=== PATIENT | male | born 1945 | race American Indian/Alaskan Native ===

== ENCOUNTER 2020-09-12 01:12 | Inpatient (IN) | payer MEDICARE ==
[2020-09-12] MEDS ORDERED: ASPIRIN 81 MG TAB CHEW PO ONE (01:50)
[2020-09-12 02:12] LABS: Basophils # (Auto) 0.1 K/mm3 (0.0-0.1); Basophils % (Auto) 0.7 % (0.0-1.8); Eosinophils # (Auto) 0.3 K/mm3 (0.0-0.4); Eosinophils % (Auto) 3.6 % (0.0-4.3); Hematocrit 34.6 % (35.5-45.6); Hemoglobin 11.6 gm/dl (11.8-15.2); Lymphocytes # (Auto) 1.3 K/mm3 (1.2-5.4); Lymphocytes % (Auto) 17.8 % (13.4-35.0); Mean Corpuscular HGB Conc 33 % (32-34); Mean Corpuscular Volume 88 fl (84-94); Monocytes # (Auto) 0.7 K/mm3 (0.0-0.8); Monocytes % (Auto) 9.3 % (0.0-7.3); Platelet Count 258 K/mm3 (140-440); Red Blood Count 3.93 M/mm3 (3.65-5.03); Red Cell Distribution Width 13.9 % (13.2-15.2)
[2020-09-12 02:21] LABS: INR 0.99 (0.87-1.13)
[2020-09-12 02:35] LABS: Alanine Aminotransferase 13 units/L (7-56); Albumin 3.7 g/dL (3.9-5); BUN/Creatinine Ratio 10; Blood Urea Nitrogen 11 mg/dL (9-20); Calcium 8.9 mg/dL (8.4-10.2); Hemolysis Index 6
[2020-09-12] MEDS ORDERED: MAGNESIUM SULFATE 2 GM/50 ML BAG IV ONE (02:42)
--- NOTE | 2020-09-12 02:43 | XRay Report ---
XR chest 1V ap INDICATION / CLINICAL INFORMATION: Dyspnea COMPARISON: None available. FINDINGS: SUPPORT DEVICES: None. HEART / MEDIASTINUM: No significant abnormality. LUNGS / PLEURA: Lungs are clear. Minimal right horizontal fissure thickening. Costophrenic sulci are sharp. No pneumothorax. ADDITIONAL FINDINGS: No significant additional findings. IMPRESSION: 1. No acute findings. Signer Name: Anselmo Chavira MD Signed: 09/12/2020 2:39 AM Workstation Name: [id number]
--- NOTE | 2020-09-12 02:46 | Emergency Department Report ---
ED Shortness of Breath HPI - General Chief Complaint: Dyspnea/Respdistress Stated Complaint: JHON Time Seen by Provider: 09/12/20 01:29 Source: patient, EMS Mode of arrival: Stretcher Limitations: No Limitations - History of Present Illness Initial Comments: 75-year-old male who presents to the emergency department complaint of shortness of breath. Patient does report that he has a history of diabetes and hypertension. He states that for the past few days he has noticed trouble breathing and tightness in his chest. He states he does not consider this to be chest pain. He has had worsening dyspnea on exertion and states he has not been able to walk uphill to go to yarsani. He denies any orthopnea or lower extremity swelling. He states he has had no history of abnormal heart beat and states that he has not seen a upsetter in the clinic. - Related Data Previous Rx's Medication Instructions Recorded Last Taken Type Clindamycin [Clindamycin CAP] 300 mg PO Q6H #40 capsule 06/03/15 Unknown Rx Ibuprofen [Motrin] 600 mg PO Q8H PRN #50 tablet 06/03/15 Unknown Rx Allergies Allergy/AdvReac Type Severity Reaction Status Date / Time No Known Allergies Allergy Verified 09/12/20 06:29 ED Review of Systems ROS: Stated complaint: JHON Other details as noted in HPI Constitutional: denies: chills, fever ENT: denies: dental pain Respiratory: shortness of breath, SOB with exertion. denies: cough, orthopnea Cardiovascular: denies: chest pain Endocrine: no symptoms reported Gastrointestinal: as per HPI. denies: nausea, vomiting Genitourinary: denies: frequency Musculoskeletal: denies: back pain Skin: denies: rash Neurological: headache Psychiatric: denies: anxiety, depression Hematological/Lymphatic: denies: easy bleeding ED Past Medical Hx - Past Medical History Previous Medical History?: Yes Hx Hypertension: Yes Hx Diabetes: Yes Additional medical history: CHRONIC BACK PAIN - Surgical History Past Surgical History?: Yes Additional Surgical History: LEFT FOREARM SURGERY. BACK SURGERY - Social History Smoking Status: Current Some Day Smoker - Medications Home Medications: Home Medications Medication Instructions Recorded Confirmed Last Taken Type Clindamycin [Clindamycin CAP] 300 mg PO Q6H #40 capsule 06/03/15 Unknown Rx Ibuprofen [Motrin] 600 mg PO Q8H PRN #50 tablet 06/03/15 Unknown Rx ED Physical Exam - General Limitations: No Limitations General appearance: alert, in no apparent distress - Head Head exam: Present: atraumatic, normocephalic - Eye Eye exam: Present: normal appearance Pupils: Present: normal accommodation - ENT ENT exam: Present: normal exam - Neck Neck exam: Present: normal inspection - Respiratory Respiratory exam: Present: normal lung sounds bilaterally. Absent: respiratory distress, wheezes, rales, rhonchi - Cardiovascular Cardiovascular Exam: Present: irregular rhythm - GI/Abdominal GI/Abdominal exam: Present: soft. Absent: distended, tenderness - Rectal Rectal exam: Present: deferred - Extremities Exam Extremities exam: Present: normal inspection - Back Exam Back exam: Present: normal inspection - Neurological Exam Neurological exam: Present: alert, oriented X3 - Psychiatric Psychiatric exam: Present: normal affect - Skin Skin exam: Present: warm, dry, intact ED Course Vital Signs 09/12/20 09/12/20 09/12/20 01:41 01:46 01:51 Temperature 98.7 F 98.7 F Pulse Rate 78 74 74 Respiratory 24 24 Rate Blood Pressure 148/85 Blood Pressure 148/84 [Right] O2 Sat by Pulse 94 94 Oximetry 09/12/20 09/12/20 09/12/20 02:00 03:04 04:01 Temperature Pulse Rate 86 80 Respiratory 26 H 30 H Rate Blood Pressure 148/84 152/81 155/59 Blood Pressure [Right] O2 Sat by Pulse 92 94 93 Oximetry 09/12/20 09/12/20 09/12/20 05:01 05:11 05:21 Temperature Pulse Rate 78 78 84 Respiratory 18 17 20 Rate Blood Pressure 160/61 160/61 160/61 Blood Pressure [Right] O2 Sat by Pulse 95 95 96 Oximetry 09/12/20 09/12/20 09/12/20 05:31 05:41 05:54 Temperature Pulse Rate 79 84 62 Respiratory 19 17 15 Rate Blood Pressure 160/61 155/59 Blood Pressure 160/62 [Right] O2 Sat by Pulse 96 95 96 Oximetry - Reevaluation(s) Reevaluation #1: 09/12/20 03:48 Patient reports that his breathing is improved on the supplemental oxygen. He states he feels improved.. ED Medical Decision Making - Lab Data Result diagrams: 09/13/20 05:15 09/13/20 05:15 - EKG Data -: EKG Interpreted by Me No standard instances Rhythm: A. flutter - EKG Data Interpretation: nonspecific ST-T wave arlene - Radiology Data Radiology results: report reviewed - Medical Decision Making 75-year-old male presents emergency department with complaint of shortness of breath as well as tightness in his chest. Symptoms started a few days ago and have since worsened. Patient denies history of previous arrhythmia but initial EKG here does show an atrial flutter. Patient denies any chest pain at this time. Plan to check electrolytes, TSH and patient likely to be admitted for new onset a flutter. ACS is considered as he could have shortness of breath is ACS. Troponins are ordered as well as BNP. Patient does not have history of blood clots in the legs or lungs pulmonary embolism considered but less likely. Critical care attestation.: If time is entered above; I have spent that time in minutes in the direct care of this critically ill patient, excluding procedure time. ED Disposition Clinical Impression: New onset atrial flutter, Dyspnea Disposition: OP ADMIT IP TO THIS HOSP Is pt being admited?: Yes Does the pt Need Aspirin: No Condition: Stable Time of Disposition: 04:10
--- NOTE | 2020-09-12 03:25 | Cat Scan Report ---
CT head/brain wo con INDICATION: headache; will need anticoag for a flutter. TECHNIQUE: Routine CT head. All CT scans at this location are performed using CT dose reduction for A JO ANN by means of automated exposure control. COMPARISON: None. FINDINGS: Intracranial: Harden-white matter differentiation is maintained. No intracranial hemorrhage. No extra a xial collection. No hydrocephalus. No herniation. Periventricular and centrum semiovale white matter hypoattenuation most consistent with sequela of chronic microvascular disease. Sinuses: Paranasal sinuses and mastoid air cells are essentially clear. Orbits: Globes are intact. Calvarium: No acute fracture. IMPRESSION: 1. No acute intracranial abnormality. Signer Name: Anselmo Chavira MD Signed: 09/12/2020 3:21 AM Workstation Name: [id number]
[2020-09-12 03:42] LABS: Bilirubin,Urine NEG (Negative); Blood,Urine NEG (Negative); Color,Urine Yellow (Yellow); Mucus,Urine FEW /HPF; Protein,Urine <15 mg/dL mg/dL (Negative)
[2020-09-12] MEDS ORDERED: ALPRAZolam 0.25 MG TAB PO PRN (06:19)
[2020-09-12] MEDS ORDERED: NITROGLYCERIN 0.4 MG TAB SUBL SL PRN (06:19)
[2020-09-12] MEDS ORDERED: METOCLOPRAMIDE 10 MG/2 ML INJ IV PRN (06:19)
[2020-09-12] MEDS ORDERED: ONDANSETRON 4 MG/2 ML INJ IV PRN (06:19)
[2020-09-12] MEDS ORDERED: ALUM-MAG HYDROXIDE-SIMETHICONE 200-200-20MG/5ML ORAL LIQD 30 ML PO PRN (06:19)
[2020-09-12] MEDS ORDERED: SENNOSIDES 8.6 MG TAB PO PRN (06:19)
[2020-09-12] MEDS ORDERED: ACETAMINOPHEN 325 MG TAB PO PRN (06:19)
[2020-09-12] MEDS ORDERED: hydrALAZINE 20 MG/1 ML INJ IV PRN (06:24)
[2020-09-12] MEDS ORDERED: traMADol 50 MG TAB PO PRN (06:29)
[2020-09-12] MEDS ORDERED: traZODone 50 MG TAB PO PRN (06:29)
--- NOTE | 2020-09-12 06:34 | History and Physical Report ---
History of Present Illness Date of admission: 09/12/20 05:05 History of present illness: 75-year-old male who presents to the emergency department complaint of shortness of breath. Patient does report that he has a history of diabetes and hypertension. He states that for the past few days he has noticed trouble dorothy athing and tightness in his chest. He states he does not consider this to be chest pain. He has had worsening dyspnea on exertion and states he has not been able to walk uphill to go to voodoo. He denies any orthopnea or lower extremity swelling. He states he has had no history of abnormal heart beat and states that he has not seen a item repair manager in the clinic. ED work-up shows WBC 7.2 hemoglobin 11.6 platelets 258, sodium 140, potassium 3.9, creatinine 1.1, serum glucose 187, magnesium 1.4, BNP 920.9, and troponin negative. CT of the head done showed no acute intracranial abnormality checks x-ray no acute finding. Patient seen at bedside sleeping but easy to arouse patient on oxygen by nasal cannula patient originally came to the ED with shortness of breath. Patient has history of high blood pressure and diabetes I reviewed the lab medical record and vital signs. Patient has low magnesium will replace. Past History Past Medical History: atrial fib, diabetes, hypertension Past Surgical History: No surgical history Social history: lives with family Family history: hypertension Medications and Allergies Allergies Allergy/AdvReac Type Severity Reaction Status Date / Time No Known Allergies Allergy Verified 09/12/20 06:29 Home Medications Medication Instructions Recorded Confirmed Last Taken Type Clindamycin [Clindamycin CAP] 300 mg PO Q6H #40 capsule 06/03/15 Unknown Rx Ibuprofen [Motrin] 600 mg PO Q8H PRN #50 tablet 06/03/15 Unknown Rx Active Meds: Active Medications Acetaminophen (Acetaminophen 325 Mg Tab) 650 mg PO Q4H PRN PRN Reason: Pain MILD(1-3)/Fever >100.5/MURRAY Al Hydrox/Mg Hydrox/Simethicone (Alum-Mag Hydroxide-Simethicone [id number]/5ml Oral Liqd 30 Ml) 30 ml PO Q4H PRN PRN Reason: Indigestion Alprazolam (Alprazolam 0.25 Mg Tab) 0.125 mg PO Q8H PRN PRN Reason: Agitation Aspirin (Aspirin Ec 81 Mg Tab) 81 mg PO QDAY [facility] Famotidine (Famotidine 20 Mg/2 Ml Inj) 20 mg IV BID [facility] Hydralazine HCl (Hydralazine 20 Mg/1 Ml Inj) 5 mg IV Q4HR PRN PRN Reason: Hypertension Metoclopramide HCl (Metoclopramide 10 Mg/2 Ml Inj) 10 mg IV Q6H PRN PRN Reason: Nausea And Vomiting Metoprolol Tartrate (Metoprolol Tartrate 50 Mg Tab) 50 mg PO BID [facility] Nitroglycerin (Nitroglycerin 0.4 Mg Tab Subl) 0.4 mg SL .Q5MIN PRN PRN Reason: Chest Pain Ondansetron HCl (Ondansetron 4 Mg/2 Ml Inj) 4 mg IV Q8H PRN PRN Reason: Nausea And Vomiting Senna (Sennosides 8.6 Mg Tab) 8.6 mg PO Q12HR PRN PRN Reason: Constipation Sodium Chloride (Sodium Chloride 0.9% 10 Ml Flush Syringe) 10 ml IV BID [facility] Sodium Chloride (Sodium Chloride 0.9% 10 Ml Flush Syringe) 10 ml IV PRN PRN PRN Reason: LINE FLUSH Review of Systems Ears, nose, mouth and throat: no epistaxis, no bleeding gums Cardiovascular: shortness of breath, dyspnea on exertion Respiratory: shortness of breath Gastrointestinal: no melena Rectal: no itching, no hemorrhoids Musculoskeletal: no neck stiffness Integumentary: no rash, no pruritis Neurological: no head injury Psychiatric: no suicidal ideation, no disorientation Hematologic/Lymphatic: no easy bruising, no easy bleeding Allergic/Immunologic: no urticaria Exam - Constitutional Vitals: Temp Pulse Resp BP Pulse Ox 98.7 F 62 15 160/62 96 09/12/20 01:51 09/12/20 05:54 09/12/20 05:54 09/12/20 05:54 09/12/20 05:54 General appearance: Present: mild distress, obese - EENT Eyes: Present: PERRL ENT: hearing intact, clear oral mucosa - Neck Neck: Present: supple, normal ROM - Respiratory Respiratory effort: normal Respiratory: bilateral: CTA - Cardiovascular Heart rate: 62 Rhythm: irregularly irregular (new onset A-fib) Heart Sounds: Present: S1 & S2. Absent: rub, click - Extremities Extremities: pulses symmetrical, No edema Peripheral Pulses: within normal limits - Abdominal General gastrointestinal: Present: soft, non-tender, non-distended, normal bowel sounds Male genitourinary: Present: normal - Integumentary Integumentary: Present: clear, warm, dry - Musculoskeletal Musculoskeletal: gait normal, strength equal bilaterally - Psychiatric Psychiatric: appropriate mood/affect, intact judgment & insight, cooperative - Neurologic Neurologic: CNII-XII intact, moves all extremities - Allied Health Allied health notes reviewed: nursing HEART Score - HEART Score Troponin: Troponin T < 0.010 ng/mL (0.00-0.029) 09/12/20 01:54 Results - Labs CBC & Chem 7: 09/12/20 01:54 09/12/20 01:54 Labs: Abnormal lab results 09/12/20 09/12/20 09/12/20 Range/Units 01:54 01:54 03:48 Hgb 11.6 L (11.8-15.2) gm/dl Hct 34.6 L (35.5-45.6) % [place] % (Auto) 9.3 H (0.0-7.3) % Glucose 187 H (75-100) mg/dL Magnesium 1.40 L (1.7-2.3) mg/dL NT-Pro-B Natriuret Pep 920.9 H (0-900) pg/mL Albumin 3.7 L (3.9-5) g/dL Assessment and Plan - Patient Problems (1) New onset atrial flutter Current Visit: Yes Status: Acute Plan to address problem: Patient came with shortness of breath New onset A- Flutter Patient started on antiplatelet and beta-ignacia [employer] consulted will follow up with plan of care Echocardiogram ordered. (2) Dyspnea Current Visit: Yes Status: Acute Plan to address problem: Oxygen per nasal cannula Monitor ABG and as needed bronchodilators (3) Hypertension Current Visit: Yes Status: Acute Plan to address problem: Monitor blood pressure Resume home antihypertensive As needed hydralazine (4) Diabetes Current Visit: Yes Status: Acute Plan to address problem: Monitor blood sugar with sliding scale protocol Check hemoglobin A1c (5) Acute CHF (congestive heart failure) Current Visit: Yes Status: Acute Plan to address problem: BNP elevated on blood work Patient came with shortness of breath Patient a flutter on the monitor Echo and cardiac consult. Start cardioprotective measures antiplatelet, statin, BB, and oxygen supplement as needed. (6) Hypomagnesemia Current Visit: Yes Status: Acute Plan to address problem: Replace magnesium Check magnesium level in the morning (7) DVT prophylaxis Current Visit: Yes Status: Acute Plan to address problem: Subcutaneous Lovenox (8) Full code status Current Visit: Yes Status: Acute Plan to address problem: Patient is full code
[2020-09-12] MEDS ORDERED: MAGNESIUM SULFATE 4 GM/100 ML BAG IV ONE (06:36)
[2020-09-12] MEDS: INSULIN LISPRO 100 UNIT/ML SUB-Q SCH ×4 (08:20→22:21)
--- NOTE | 2020-09-12 08:26 | Consultation ---
History of Present Illness Consult date: 09/12/20 Requesting physician: ALBERTO BERTRAND Consult reason: atrial fibrillation History of present illness: Pt is a 75-year-old AA male with a hx of HTN and DM who presented with complaints of SOB/HARPER for the past few days. He reports that he would not be able to make it more than residential down the hallway currently without sx. He does not endorse orthopnea but does sleep propped up with 2-3 pillows at home. Pt denies chest pain, palpitations, or any additional cardiac complaints. BNP mildly elevated. No acute findings on CXR. ECG upon admission reveals atrial flutter with 4:1 conduction. Tele reviewed - AFlutter 70-80s. Pt denies a hx of AF or other arrhythmias. He is previously unknown to our practice. No prior cardiac workup available for review. Past History Past Medical History: diabetes, hypertension Past Surgical History: denies: valve replacement, CABG, PTCA Social history: lives with family, smoking (cigars), alcohol abuse, other (+cocaine) Family history: hypertension Medications and Allergies Allergies Allergy/AdvReac Type Severity Reaction Status Date / Time No Known Allergies Allergy Verified 09/12/20 06:29 Home Medications Medication Instructions Recorded Confirmed Last Taken Type Clindamycin [Clindamycin CAP] 300 mg PO Q6H #40 capsule 06/03/15 Unknown Rx Ibuprofen [Motrin] 600 mg PO Q8H PRN #50 tablet 06/03/15 Unknown Rx Active Meds: Active Medications Acetaminophen (Acetaminophen 325 Mg Tab) 650 mg PO Q4H PRN PRN Reason: Pain MILD(1-3)/Fever >100.5/MURRAY Al Hydrox/Mg Hydrox/Simethicone (Alum-Mag Hydroxide-Simethicone [id number]/5ml Oral Liqd 30 Ml) 30 ml PO Q4H PRN PRN Reason: Indigestion Alprazolam (Alprazolam 0.25 Mg Tab) 0.125 mg PO Q8H PRN PRN Reason: Agitation Amlodipine Besylate (Amlodipine 10 Mg Tab) 10 mg PO QDAY [facility] Aspirin (Aspirin Ec 81 Mg Tab) 81 mg PO QDAY [facility] Atorvastatin Calcium (Atorvastatin 40 Mg Tab) 40 mg PO QHS [facility] Carvedilol (Carvedilol 3.125 Mg Tab) 3.125 mg PO BID [facility] Enoxaparin Sodium (Enoxaparin 40 Mg/0.4 Ml Inj) 40 mg SUB-Q QDAY [facility]; Protocol Famotidine (Famotidine 20 Mg/2 Ml Inj) 20 mg IV BID [facility] Hydralazine HCl (Hydralazine 20 Mg/1 Ml Inj) 5 mg IV Q4HR PRN PRN Reason: Hypertension Magnesium Sulfate (Magnesium Sulfate 4gm/100ml) 4 gm in 100 mls @ 25 mls/hr IV ONCE ONE Stop: 09/12/20 10:35 Insulin Human Lispro (Insulin Lispro 100 Unit/Ml) 0 unit SUB-Q ACHS [facility]; Protocol Last Admin: 09/12/20 08:20 Dose: Not Given Documented by: Metoclopramide HCl (Metoclopramide 10 Mg/2 Ml Inj) 10 mg IV Q6H PRN PRN Reason: Nausea And Vomiting Nitroglycerin (Nitroglycerin 0.4 Mg Tab Subl) 0.4 mg SL .Q5MIN PRN PRN Reason: Chest Pain Ondansetron HCl (Ondansetron 4 Mg/2 Ml Inj) 4 mg IV Q8H PRN PRN Reason: Nausea And Vomiting Senna (Sennosides 8.6 Mg Tab) 8.6 mg PO Q12HR PRN PRN Reason: Constipation Sodium Chloride (Sodium Chloride 0.9% 10 Ml Flush Syringe) 10 ml IV BID [facility] Sodium Chloride (Sodium Chloride 0.9% 10 Ml Flush Syringe) 10 ml IV PRN PRN PRN Reason: LINE FLUSH Tramadol HCl (Tramadol 50 Mg Tab) 50 mg PO Q6H PRN PRN Reason: Pain, Moderate (4-6) Trazodone HCl (Trazodone 50 Mg Tab) 50 mg PO QHS PRN PRN Reason: Insomnia Review of Systems Constitutional: no fever, no chills Ears, nose, mouth and throat: no nasal congestion, no sore throat Cardiovascular: shortness of breath, dyspnea on exertion, no chest pain, no orthopnea, no palpitations, no edema, no syncope, no lightheadedness, no paroxysmal nocturnal dyspnea, no claudication Respiratory: shortness of breath, dyspnea on exertion, no cough Gastrointestinal: no abdominal pain, no nausea, no vomiting Genitourinary Male: no dysuria, no flank pain Musculoskeletal: no neck stiffness, no neck pain Integumentary: no rash, no wounds Neurological: no head injury, no paralysis, no numbness, no tingling, no seizures, no syncope, no vertigo, no headaches Endocrine: no cold intolerance, no heat intolerance Hematologic/Lymphatic: no easy bruising, no easy bleeding Allergic/Immunologic: no anaphylaxis Physical Examination Last Vital Signs Temp 98.5 F 09/12/20 07:36 Pulse 75 09/12/20 07:36 Resp 18 09/12/20 07:36 BP 164/71 09/12/20 07:36 Pulse Ox 92 09/12/20 07:36 General appearance: no acute distress HEENT: Positive: PERRL, Normocephaly, Mucus Membranes Moist Neck: Positive: neck supple, trachea midline. Negative: JVD/HJR Cardiac: Positive: Irregularly Regular, S1/S2. Negative: Audible Murmur Lungs: Positive: Decreased Breath Sounds (bases) Neuro: Positive: Grossly Intact Abdomen: Positive: Soft. Negative: Tender Skin: Negative: Rash Musculoskeletal: No Pain Extremities: Present: lower extr. pulses. Absent: edema Results 09/12/20 01:54 09/12/20 01:54 Cardiac Enzymes 09/12/20 Range/Units 01:54 AST 11 (5-40) units/L Coagulation 09/12/20 Range/Units 01:54 PT 13.6 (12.2-14.9) Sec. INR 0.99 (0.87-1.13) CBC 09/12/20 Range/Units 01:54 WBC 7.2 (4.5-11.0) K/mm3 RBC 3.93 (3.65-5.03) M/mm3 Hgb 11.6 L (11.8-15.2) gm/dl Hct 34.6 L (35.5-45.6) % Plt Count 258 (140-440) K/mm3 Lymph # (Auto) 1.3 (1.2-5.4) K/mm3 [place] # (Auto) 0.7 (0.0-0.8) K/mm3 Eos # (Auto) 0.3 (0.0-0.4) K/mm3 Baso # (Auto) 0.1 (0.0-0.1) K/mm3 Comprehensive Metabolic Panel 09/12/20 Range/Units 01:54 Sodium 140 (137-145) mmol/L Potassium 3.9 (3.6-5.0) mmol/L Chloride 106.0 (98-107) mmol/L Carbon Dioxide 26 (22-30) mmol/L BUN 11 (9-20) mg/dL Creatinine 1.1 (0.8-1.3) mg/dL Glucose 187 H (75-100) mg/dL Calcium 8.9 (8.4-10.2) mg/dL AST 11 (5-40) units/L ALT 13 (7-56) units/L Alkaline Phosphatase 45 (35-129) units/L Total Protein 6.7 (6.3-8.2) g/dL Albumin 3.7 L (3.9-5) g/dL - Imaging and Cardiology Echo: pending EKG: report reviewed, image reviewed - EKG Interpretation EKG: no acute changes EKG interpretations - Telemetry EKG Rhythm: Atrial Flutter - EKG Supraventricular dysrhythmia: atrial flutter Assessment and Plan Echo pending. Mg repletion underway per Primary. F/u BMP & Mg. Will start Eliquis for new onset atrial flutter. Discontinue ASA. Rate is currently well-controlled. May increase Coreg to 6.25mg BID as BP permits. Will also start IV Lasix 40mg daily for now. Pt seen in conjunction with Dr. Cardenas, who agrees with the assessment and plan of care. - Patient Problems (1) Acute respiratory failure Current Visit: Yes Status: Acute (2) Acute heart failure Current Visit: Yes Status: Suspected (3) New onset atrial flutter Current Visit: Yes Status: Acute (4) Hypomagnesemia Current Visit: Yes Status: Acute (5) Hypertension Current Visit: Yes Status: Chronic Qualifiers: Hypertension type: primary hypertension Qualified Code(s): I10 - Essential (primary) hypertension (6) Diabetes Current Visit: Yes Status: Chronic (7) Tobacco abuse Current Visit: Yes Status: Chronic (8) ETOH abuse Current Visit: Yes Status: Chronic (9) Cocaine abuse Current Visit: No Status: Chronic
[2020-09-12] MEDS: FAMOTIDINE 20 MG/2 ML INJ IV SCH ×2 (09:28→22:20)
[2020-09-12] MEDS ORDERED: ENOXAPARIN 40 MG/0.4 ML INJ SUB-Q SCH (10:00)
[2020-09-12] MEDS ORDERED: carvediloL 3.125 MG TAB PO SCH (10:00)
[2020-09-12] MEDS ORDERED: METOPROLOL TARTRATE 50 MG TAB PO SCH (10:00)
[2020-09-12] MEDS ORDERED: amLODIPine 10 MG TAB PO SCH (10:00)
[2020-09-12] MEDS: APIXABAN 5 MG TAB PO SCH ×2 (11:27→22:21)
[2020-09-12] MEDS: FUROSEMIDE 40 MG/4 ML INJ IV SCH (11:28)
--- NOTE | 2020-09-12 12:15 | Event Note ---
Date: 09/12/20 Brief progress note Patient seen and examined History obtained This is the second IMS visit of the day He is alert and oriented and not in any distress Offers no specific complaints and denies any shortness of breath or palpitations or chest pain Lab results reviewed Cardiology note reviewed Echo pending Heart rate is controlled New onset atrial flutter Work-up in progress
[2020-09-12] MEDS: carvediloL 3.125 MG TAB PO SCH (22:20)
[2020-09-13 06:03] LABS: Basophils # (Auto) 0.1 K/mm3 (0.0-0.1); Basophils % (Auto) 0.9 % (0.0-1.8); Eosinophils # (Auto) 0.2 K/mm3 (0.0-0.4); Hematocrit 34.4 % (35.5-45.6); Hemoglobin 11.2 gm/dl (11.8-15.2); Lymphocytes # (Auto) 1.8 K/mm3 (1.2-5.4); Lymphocytes % (Auto) 30.2 % (13.4-35.0); Mean Corpuscular HGB Conc 33 % (32-34); Mean Corpuscular Volume 89 fl (84-94); Monocytes # (Auto) 0.8 K/mm3 (0.0-0.8); Monocytes % (Auto) 13.5 % (0.0-7.3); Platelet Count 232 K/mm3 (140-440); Red Blood Count 3.88 M/mm3 (3.65-5.03); Red Cell Distribution Width 14.4 % (13.2-15.2)
[2020-09-13 06:58] LABS: Alanine Aminotransferase 10 units/L (7-56); Albumin 3.5 g/dL (3.9-5); BUN/Creatinine Ratio 9; Blood Urea Nitrogen 9 mg/dL (9-20); Calcium 9.1 mg/dL (8.4-10.2); Hemolysis Index 5
[2020-09-13] MEDS: INSULIN LISPRO 100 UNIT/ML SUB-Q SCH ×4 (08:30→21:46)
[2020-09-13] MEDS ORDERED: ASPIRIN EC 81 MG TAB PO SCH (10:00)
[2020-09-13] MEDS ORDERED: amLODIPine 10 MG TAB PO SCH (10:00)
--- NOTE | 2020-09-13 10:07 | Progress Note ---
Assessment and Plan Assessment and plan: Pt is a 75-year-old AA male with a hx of HTN and DM who presented with complaints of SOB/HARPER for the past few days. He reports that he would not be able to make it more than custodial down the hallway currently without sx. He does not endorse orthopnea but does sleep propped up with 2-3 pillows at home. Pt denied chest pain, palpitations, or any additional cardiac complaints. BNP mildly elevated. No acute findings on CXR. ECG upon admission reveals atrial flutter with 4:1 conduction. Tele reviewed - AFlutter 70-80s. Pt denies a hx of AF or other arrhythmias. No prior cardiac workup available for review. Acute hypoxic respiratory failure Acute heart failure. Echocardiogram pending. New onset atrial flutter Hypomagnesemia Hypertension Diabetes mellitus type 2 Tobacco abuse EtOH abuse Cocaine abuse 09/13/2020. Cardiology started Eliquis for new onset atrial flutter. Aspirin discontinued. Continue Coreg per cardiology recommendations. IV Lasix for diuresis. Follow-up echocardiogram. History Interval history: No new issues overnight Hospitalist Physical - Constitutional Vitals: Temp Pulse Resp BP Pulse Ox 97.3 F L 67 18 151/82 95 09/13/20 08:03 09/13/20 08:03 09/13/20 08:03 09/13/20 08:03 09/13/20 09:09 General appearance: Present: no acute distress - EENT Eyes: Present: PERRL, EOM intact ENT: hearing intact, clear oral mucosa, dentition normal - Neck Neck: Present: supple, normal ROM - Respiratory Respiratory effort: normal Respiratory: bilateral: CTA - Cardiovascular Rhythm: regular Heart Sounds: Present: S1 & S2. Absent: gallop, rub - Extremities Extremities: no ischemia, No edema, Full ROM - Abdominal General gastrointestinal: soft, non-tender, non-distended, normal bowel sounds - Integumentary Integumentary: Present: clear, warm, dry - Neurologic Neurologic: CNII-XII intact, moves all extremities HEART Score - HEART Score Troponin: Troponin T < 0.010 ng/mL (0.00-0.029) 09/12/20 11:00 Results - Labs CBC & Chem 7: 09/13/20 05:15 09/13/20 05:15 Labs: Laboratory Last Values WBC 5.9 K/mm3 (4.5-11.0) 09/13/20 05:15 RBC 3.88 M/mm3 (3.65-5.03) 09/13/20 05:15 Hgb 11.2 gm/dl (11.8-15.2) L 09/13/20 05:15 Hct 34.4 % (35.5-45.6) L 09/13/20 05:15 MCV 89 fl (84-94) 09/13/20 05:15 MCH 29 pg (28-32) 09/13/20 05:15 MCHC 33 % (32-34) 09/13/20 05:15 RDW 14.4 % (13.2-15.2) 09/13/20 05:15 Plt Count 232 K/mm3 (140-440) 09/13/20 05:15 Lymph % (Auto) 30.2 % (13.4-35.0) 09/13/20 05:15 [place] % (Auto) 13.5 % (0.0-7.3) H 09/13/20 05:15 Eos % (Auto) 4.0 % (0.0-4.3) 09/13/20 05:15 Baso % (Auto) 0.9 % (0.0-1.8) 09/13/20 05:15 Lymph # (Auto) 1.8 K/mm3 (1.2-5.4) 09/13/20 05:15 [place] # (Auto) 0.8 K/mm3 (0.0-0.8) 09/13/20 05:15 Eos # (Auto) 0.2 K/mm3 (0.0-0.4) 09/13/20 05:15 Baso # (Auto) 0.1 K/mm3 (0.0-0.1) 09/13/20 05:15 Seg Neutrophils % 51.4 % (40.0-70.0) 09/13/20 05:15 Seg Neutrophils # 3.0 K/mm3 (1.8-7.7) 09/13/20 05:15 PT 13.6 Sec. (12.2-14.9) 09/12/20 01:54 INR 0.99 (0.87-1.13) 09/12/20 01:54 Sodium 141 mmol/L (137-145) 09/13/20 05:15 Potassium 3.9 mmol/L (3.6-5.0) 09/13/20 05:15 Chloride 103.7 mmol/L (98-107) 09/13/20 05:15 Carbon Dioxide 28 mmol/L (22-30) 09/13/20 05:15 Anion Gap 13 mmol/L 09/13/20 05:15 BUN 9 mg/dL (9-20) 09/13/20 05:15 Creatinine 1.0 mg/dL (0.8-1.3) 09/13/20 05:15 Estimated GFR > 60 ml/min 09/13/20 05:15 BUN/Creatinine Ratio 9 % 09/13/20 05:15 Glucose 137 mg/dL (75-100) H 09/13/20 05:15 POC Glucose 154 mg/dL (70-105) H 09/13/20 08:02 Calcium 9.1 mg/dL (8.4-10.2) 09/13/20 05:15 Magnesium 1.70 mg/dL (1.7-2.3) 09/13/20 05:15 Total Bilirubin 0.60 mg/dL (0.1-1.2) 09/13/20 05:15 AST 10 units/L (5-40) 09/13/20 05:15 ALT 10 units/L (7-56) 09/13/20 05:15 Alkaline Phosphatase 43 units/L (35-129) 09/13/20 05:15 Troponin T < 0.010 ng/mL (0.00-0.029) 09/12/20 11:00 NT-Pro-B Natriuret Pep 920.9 pg/mL (0-900) H 09/12/20 03:48 Total Protein 6.6 g/dL (6.3-8.2) 09/13/20 05:15 Albumin 3.5 g/dL (3.9-5) L 09/13/20 05:15 Albumin/Globulin Ratio 1.1 % 09/13/20 05:15 TSH 1.510 mlU/mL (0.270-4.200) 09/12/20 03:00 Urine Color Yellow (Yellow) 09/12/20 03:28 Urine Turbidity Clear (Clear) 09/12/20 03:28 Urine pH 6.0 (5.0-7.0) 09/12/20 03:28 Ur Specific [place] 1.013 (1.003-1.030) 09/12/20 03:28 Urine Protein <15 mg/dl mg/dL (Negative) 09/12/20 03:28 Urine Glucose (UA) >=500 mg/dL (Negative) 09/12/20 03:28 Urine Ketones Neg mg/dL (Negative) 09/12/20 03:28 Urine Blood Neg (Negative) 09/12/20 03:28 Urine Nitrite Neg (Negative) 09/12/20 03:28 Urine Bilirubin Neg (Negative) 09/12/20 03:28 Urine Urobilinogen 2.0 mg/dL (<2.0) 09/12/20 03:28 Ur Leukocyte Esterase Neg (Negative) 09/12/20 03:28 Urine WBC (Auto) 1.0 /HPF (0.0-6.0) 09/12/20 03:28 Urine RBC (Auto) 1.0 /HPF (0.0-6.0) 09/12/20 03:28 U Epithel Cells (Auto) 1.0 /HPF (0-13.0) 09/12/20 03:28 Urine Mucus Few /HPF 09/12/20 03:28 Armando/IV: Voiding Method Toilet Active Medications - Current Medications Current Medications: Generic Name Dose Route Start Last Admin Trade Name Freq PRN Reason Stop Dose Admin Acetaminophen 650 mg 09/12/20 06:19 Acetaminophen 325 Mg Tab PO Q4H PRN Pain MILD(1-3)/Fever >100.5/MURRAY Al Hydrox/Mg Hydrox/Simethicone 30 ml 09/12/20 06:19 Alum-Mag Hydroxide-Simethicone [id number]/5ml Oral Liqd 30 Ml PO Q4H PRN Indigestion Alprazolam 0.125 mg 09/12/20 06:19 Alprazolam 0.25 Mg Tab PO Q8H PRN Agitation Amlodipine Besylate 5 mg 09/13/20 10:00 Amlodipine 10 Mg Tab PO QDAY BRONSON Apixaban 5 mg 09/12/20 11:00 09/12/20 22:21 Apixaban 5 Mg Tab PO 5 mg Q12HR BRONSON Administration Protocol Atorvastatin Calcium 40 mg 09/12/20 22:00 09/12/20 22:21 Atorvastatin 40 Mg Tab PO 40 mg QHS BRONSON Administration Carvedilol 6.25 mg 09/12/20 10:31 09/12/20 22:20 Carvedilol 3.125 Mg Tab PO 6.25 mg BID BRONSON Administration Famotidine 20 mg 09/13/20 10:00 Famotidine 20 Mg Tab PO BID BRONSON Furosemide 40 mg 09/12/20 11:00 09/12/20 11:28 Furosemide 40 Mg/4 Ml Inj IV 40 mg QDAY BRONSON Administration Hydralazine HCl 5 mg 09/12/20 06:24 Hydralazine 20 Mg/1 Ml Inj IV Q4HR PRN SBP >/=170; DBP >/=100 Insulin Human Lispro 0 unit 09/12/20 07:30 09/13/20 08:30 Insulin Lispro 100 Unit/Ml SUB-Q 1 unit ACHS BRONSON Administration Protocol Metoclopramide HCl 10 mg 09/12/20 06:19 Metoclopramide 10 Mg/2 Ml Inj IV Q6H PRN Nausea And Vomiting Nitroglycerin 0.4 mg 09/12/20 06:19 Nitroglycerin 0.4 Mg Tab Subl SL .Q5MIN PRN Chest Pain Ondansetron HCl 4 mg 09/12/20 06:19 Ondansetron 4 Mg/2 Ml Inj IV Q8H PRN Nausea And Vomiting Senna 8.6 mg 09/12/20 06:19 Sennosides 8.6 Mg Tab PO Q12HR PRN Constipation Sodium Chloride 10 ml 09/12/20 10:00 09/12/20 22:21 Sodium Chloride 0.9% 10 Ml Flush Syringe IV 10 ml BID BRONSON Administration Sodium Chloride 10 ml 09/12/20 06:19 Sodium Chloride 0.9% 10 Ml Flush Syringe IV PRN PRN LINE FLUSH Tramadol HCl 50 mg 09/12/20 06:29 Tramadol 50 Mg Tab PO Q6H PRN Pain, Moderate (4-6) Trazodone HCl 50 mg 09/12/20 06:29 Trazodone 50 Mg Tab PO QHS PRN Insomnia
[2020-09-13] MEDS: FAMOTIDINE 20 MG TAB PO SCH ×2 (10:20→21:45)
[2020-09-13] MEDS: APIXABAN 5 MG TAB PO SCH ×2 (10:20→21:46)
[2020-09-13] MEDS: FUROSEMIDE 40 MG/4 ML INJ IV SCH (10:20)
[2020-09-13] MEDS: carvediloL 3.125 MG TAB PO SCH ×2 (10:21→21:46)
--- NOTE | 2020-09-13 11:07 | Progress Note ---
Assessment and Plan Atrial flutter, new onset with Acute HFpEF * Anticoagulated on Eliquis. Rate currently well controlled on Coreg * Echocardiogram reviewed (09/12/2020): LVEF is 60 to 65%. LV is normal size. LV SF is normal. Borderline LVH. RV is mildly dilated. RV SF is normal. RA moderately dilated. Moderate pulmonary hypertension RVSP is 54 mmHg. * Hypomagnesia is resolved * Optimize volume control: Continue Lasix 40mg IV Daily Moderate Pulmonary HTN with dilated Right ventricular Cardiomyopathy * Opimize Antihypertensive regimen: Discontinue amlodipine, Initiate Lisinopril 10mg Daily Tobacco Use, ETOH, Cocaine use * Cessation encouraged Will follow Pt seen in conjunction with Dr. Foreman, who agrees with the assessment and plan of care. - Patient Problems (1) Acute respiratory failure Current Visit: Yes Status: Acute (2) Acute heart failure Current Visit: Yes Status: Suspected (3) New onset atrial flutter Current Visit: Yes Status: Acute (4) Hypomagnesemia Current Visit: Yes Status: Acute (5) Hypertension Current Visit: Yes Status: Chronic Qualifiers: Hypertension type: primary hypertension Qualified Code(s): I10 - Essential (primary) hypertension (6) Diabetes Current Visit: Yes Status: Chronic (7) Tobacco abuse Current Visit: Yes Status: Chronic (8) ETOH abuse Current Visit: Yes Status: Chronic (9) Cocaine abuse Current Visit: No Status: Chronic (10) Pulmonary HTN Current Visit: No Status: Acute Subjective Date of service: 09/13/20 Principal diagnosis: New Onset A fib/flutter Interval history: Patient resting comfortably in bed. No shortness of breath or chest pain overnight Telemetry reviewed: Atrial flutter 70s. No events Objective Last Vital Signs Temp 97.3 F L 09/13/20 08:03 Pulse 70 09/13/20 10:21 Resp 18 09/13/20 08:03 BP 150/73 09/13/20 10:21 Pulse Ox 95 09/13/20 09:09 - Physical Examination General: No Apparent Distress HEENT: Positive: PERRL, Normocephaly, Mucus Membranes Moist Neck: Positive: neck supple, trachea midline. Negative: JVD/HJR Cardiac: Positive: Reg Rate and Rhythm, S1/S2 Lungs: Positive: clear to auscultation, Normal Breath Sounds Neuro: Positive: Grossly Intact Abdomen: Positive: Soft. Negative: Tender Skin: Negative: Rash Musculoskeletal: No Pain Extremities: Present: upper extr. pulses, lower extr. pulses. Absent: edema - Labs and Meds Cardiac Enzymes 09/13/20 Range/Units 05:15 AST 10 (5-40) units/L CBC 09/13/20 Range/Units 05:15 WBC 5.9 (4.5-11.0) K/mm3 RBC 3.88 (3.65-5.03) M/mm3 Hgb 11.2 L (11.8-15.2) gm/dl Hct 34.4 L (35.5-45.6) % Plt Count 232 (140-440) K/mm3 Lymph # (Auto) 1.8 (1.2-5.4) K/mm3 [place] # (Auto) 0.8 (0.0-0.8) K/mm3 Eos # (Auto) 0.2 (0.0-0.4) K/mm3 Baso # (Auto) 0.1 (0.0-0.1) K/mm3 Comprehensive Metabolic Panel 09/12/20 09/13/20 Range/Units 11:00 05:15 Sodium 141 (137-145) mmol/L Potassium 4.0 3.9 (3.6-5.0) mmol/L Chloride 103.7 (98-107) mmol/L Carbon Dioxide 28 (22-30) mmol/L BUN 9 (9-20) mg/dL Creatinine 1.0 (0.8-1.3) mg/dL Glucose 137 H (75-100) mg/dL Calcium 9.1 (8.4-10.2) mg/dL AST 10 (5-40) units/L ALT 10 (7-56) units/L Alkaline Phosphatase 43 (35-129) units/L Total Protein 6.6 (6.3-8.2) g/dL Albumin 3.5 L (3.9-5) g/dL - Imaging and Cardiology EKG: report reviewed, image reviewed Echo: report reviewed (Echocardiogram reviewed (09/12/2020): LVEF is 60 to 65%. LV is normal size. LV SF is normal. Borderline LVH. RV is mildly dilated. RV SF is normal. RA moderately dilated. Moderate pulmonary hypertension RVSP is 54 mmHg.) - Telemetry EKG Rhythm: Sinus Rhythm
[2020-09-13] MEDS: LISINOPRIL 10 MG TAB PO SCH (12:24)
[2020-09-14 08:48] VITALS: BP 160/86
--- NOTE | 2020-09-14 09:20 | Progress Note ---
Assessment and Plan Assessment and plan: Pt is a 75-year-old AA male with a hx of HTN and DM who presented with complaints of SOB/HARPER for the past few days. He reports that he would not be able to make it more than fpc down the hallway currently without sx. He does not endorse orthopnea but does sleep propped up with 2-3 pillows at home. Pt denied chest pain, palpitations, or any additional cardiac complaints. BNP mildly elevated. No acute findings on CXR. ECG upon admission reveals atrial flutter with 4:1 conduction. Tele reviewed - AFlutter 70-80s. Pt denies a hx of AF or other arrhythmias. No prior cardiac workup available for review. Acute hypoxic respiratory failure Acute heart failure. Echocardiogram pending. New onset atrial flutter Hypomagnesemia Hypertension Diabetes mellitus type 2 Tobacco abuse EtOH abuse Cocaine abuse 09/13/2020. Cardiology started Eliquis for new onset atrial flutter. Aspirin discontinued. Continue Coreg per cardiology recommendations. IV Lasix for diuresis. Follow-up echocardiogram. 09/14/20. Cont. Eliquis for anticoagulation and Coreg for rate control. IV Lasix for diuresis. Follow-up echocardiogram. Cardiology following History Interval history: No new issues overnight Hospitalist Physical - Constitutional Vitals: Temp Pulse Resp BP Pulse Ox 98.4 F 70 18 160/86 97 09/14/20 08:17 09/14/20 08:17 09/14/20 08:17 09/14/20 08:17 09/14/20 08:17 General appearance: Present: no acute distress - EENT Eyes: Present: PERRL, EOM intact ENT: hearing intact, clear oral mucosa, dentition normal - Neck Neck: Present: supple, normal ROM - Respiratory Respiratory effort: normal Respiratory: bilateral: CTA - Cardiovascular Rhythm: regular Heart Sounds: Present: S1 & S2. Absent: gallop, rub - Extremities Extremities: no ischemia, No edema, Full ROM - Abdominal General gastrointestinal: soft, non-tender, non-distended, normal bowel sounds - Integumentary Integumentary: Present: clear, warm, dry - Neurologic Neurologic: CNII-XII intact, moves all extremities HEART Score - HEART Score Troponin: Troponin T < 0.010 ng/mL (0.00-0.029) 09/12/20 11:00 Results - Labs CBC & Chem 7: 09/13/20 05:15 09/13/20 05:15 Labs: Laboratory Last Values WBC 5.9 K/mm3 (4.5-11.0) 09/13/20 05:15 RBC 3.88 M/mm3 (3.65-5.03) 09/13/20 05:15 Hgb 11.2 gm/dl (11.8-15.2) L 09/13/20 05:15 Hct 34.4 % (35.5-45.6) L 09/13/20 05:15 MCV 89 fl (84-94) 09/13/20 05:15 MCH 29 pg (28-32) 09/13/20 05:15 MCHC 33 % (32-34) 09/13/20 05:15 RDW 14.4 % (13.2-15.2) 09/13/20 05:15 Plt Count 232 K/mm3 (140-440) 09/13/20 05:15 Lymph % (Auto) 30.2 % (13.4-35.0) 09/13/20 05:15 [place] % (Auto) 13.5 % (0.0-7.3) H 09/13/20 05:15 Eos % (Auto) 4.0 % (0.0-4.3) 09/13/20 05:15 Baso % (Auto) 0.9 % (0.0-1.8) 09/13/20 05:15 Lymph # (Auto) 1.8 K/mm3 (1.2-5.4) 09/13/20 05:15 [place] # (Auto) 0.8 K/mm3 (0.0-0.8) 09/13/20 05:15 Eos # (Auto) 0.2 K/mm3 (0.0-0.4) 09/13/20 05:15 Baso # (Auto) 0.1 K/mm3 (0.0-0.1) 09/13/20 05:15 Seg Neutrophils % 51.4 % (40.0-70.0) 09/13/20 05:15 Seg Neutrophils # 3.0 K/mm3 (1.8-7.7) 09/13/20 05:15 PT 13.6 Sec. (12.2-14.9) 09/12/20 01:54 INR 0.99 (0.87-1.13) 09/12/20 01:54 Sodium 141 mmol/L (137-145) 09/13/20 05:15 Potassium 3.9 mmol/L (3.6-5.0) 09/13/20 05:15 Chloride 103.7 mmol/L (98-107) 09/13/20 05:15 Carbon Dioxide 28 mmol/L (22-30) 09/13/20 05:15 Anion Gap 13 mmol/L 09/13/20 05:15 BUN 9 mg/dL (9-20) 09/13/20 05:15 Creatinine 1.0 mg/dL (0.8-1.3) 09/13/20 05:15 Estimated GFR > 60 ml/min 09/13/20 05:15 BUN/Creatinine Ratio 9 % 09/13/20 05:15 Glucose 137 mg/dL (75-100) H 09/13/20 05:15 POC Glucose 189 mg/dL (70-105) H 09/14/20 08:15 Calcium 9.1 mg/dL (8.4-10.2) 09/13/20 05:15 Magnesium 1.70 mg/dL (1.7-2.3) 09/13/20 05:15 Total Bilirubin 0.60 mg/dL (0.1-1.2) 09/13/20 05:15 AST 10 units/L (5-40) 09/13/20 05:15 ALT 10 units/L (7-56) 09/13/20 05:15 Alkaline Phosphatase 43 units/L (35-129) 09/13/20 05:15 Troponin T < 0.010 ng/mL (0.00-0.029) 09/12/20 11:00 NT-Pro-B Natriuret Pep 920.9 pg/mL (0-900) H 09/12/20 03:48 Total Protein 6.6 g/dL (6.3-8.2) 09/13/20 05:15 Albumin 3.5 g/dL (3.9-5) L 09/13/20 05:15 Albumin/Globulin Ratio 1.1 % 09/13/20 05:15 TSH 1.510 mlU/mL (0.270-4.200) 09/12/20 03:00 Urine Color Yellow (Yellow) 09/12/20 03:28 Urine Turbidity Clear (Clear) 09/12/20 03:28 Urine pH 6.0 (5.0-7.0) 09/12/20 03:28 Ur Specific [place] 1.013 (1.003-1.030) 09/12/20 03:28 Urine Protein <15 mg/dl mg/dL (Negative) 09/12/20 03:28 Urine Glucose (UA) >=500 mg/dL (Negative) 09/12/20 03:28 Urine Ketones Neg mg/dL (Negative) 09/12/20 03:28 Urine Blood Neg (Negative) 09/12/20 03:28 Urine Nitrite Neg (Negative) 09/12/20 03:28 Urine Bilirubin Neg (Negative) 09/12/20 03:28 Urine Urobilinogen 2.0 mg/dL (<2.0) 09/12/20 03:28 Ur Leukocyte Esterase Neg (Negative) 09/12/20 03:28 Urine WBC (Auto) 1.0 /HPF (0.0-6.0) 09/12/20 03:28 Urine RBC (Auto) 1.0 /HPF (0.0-6.0) 09/12/20 03:28 U Epithel Cells (Auto) 1.0 /HPF (0-13.0) 09/12/20 03:28 Urine Mucus Few /HPF 09/12/20 03:28 Armando/IV: Voiding Method Toilet Active Medications - Current Medications Current Medications: Generic Name Dose Route Start Last Admin Trade Name Freq PRN Reason Stop Dose Admin Acetaminophen 650 mg 09/12/20 06:19 Acetaminophen 325 Mg Tab PO Q4H PRN Pain MILD(1-3)/Fever >100.5/MURRAY Al Hydrox/Mg Hydrox/Simethicone 30 ml 09/12/20 06:19 Alum-Mag Hydroxide-Simethicone [id number]/5ml Oral Liqd 30 Ml PO Q4H PRN Indigestion Alprazolam 0.125 mg 09/12/20 06:19 Alprazolam 0.25 Mg Tab PO Q8H PRN Agitation Apixaban 5 mg 09/12/20 11:00 09/13/20 21:46 Apixaban 5 Mg Tab PO 5 mg Q12HR BRONSON Administration Protocol Atorvastatin Calcium 40 mg 09/12/20 22:00 09/13/20 21:46 Atorvastatin 40 Mg Tab PO 40 mg QHS BRONSON Administration Carvedilol 6.25 mg 09/12/20 10:31 09/13/20 21:46 Carvedilol 3.125 Mg Tab PO 6.25 mg BID BRONSON Administration Famotidine 20 mg 09/13/20 10:00 09/13/20 21:45 Famotidine 20 Mg Tab PO 20 mg BID BRONSON Administration Furosemide 40 mg 09/12/20 11:00 09/13/20 10:20 Furosemide 40 Mg/4 Ml Inj IV 40 mg QDAY BRONSON Administration Hydralazine HCl 5 mg 09/12/20 06:24 Hydralazine 20 Mg/1 Ml Inj IV Q4HR PRN SBP >/=170; DBP >/=100 Insulin Human Lispro 0 unit 09/12/20 07:30 09/13/20 21:46 Insulin Lispro 100 Unit/Ml SUB-Q 3 unit ACHS BRONSON Administration Protocol Lisinopril 10 mg 09/13/20 13:00 09/13/20 12:24 Lisinopril 10 Mg Tab PO 10 mg QDAY BRONSON Administration Metoclopramide HCl 10 mg 09/12/20 06:19 Metoclopramide 10 Mg/2 Ml Inj IV Q6H PRN Nausea And Vomiting Nitroglycerin 0.4 mg 09/12/20 06:19 Nitroglycerin 0.4 Mg Tab Subl SL .Q5MIN PRN Chest Pain Ondansetron HCl 4 mg 09/12/20 06:19 Ondansetron 4 Mg/2 Ml Inj IV Q8H PRN Nausea And Vomiting Senna 8.6 mg 09/12/20 06:19 Sennosides 8.6 Mg Tab PO Q12HR PRN Constipation Sodium Chloride 10 ml 09/12/20 10:00 09/13/20 21:47 Sodium Chloride 0.9% 10 Ml Flush Syringe IV 10 ml BID BRONSON Administration Sodium Chloride 10 ml 09/12/20 06:19 Sodium Chloride 0.9% 10 Ml Flush Syringe IV PRN PRN LINE FLUSH Tramadol HCl 50 mg 09/12/20 06:29 Tramadol 50 Mg Tab PO Q6H PRN Pain, Moderate (4-6) Trazodone HCl 50 mg 09/12/20 06:29 Trazodone 50 Mg Tab PO QHS PRN Insomnia
[2020-09-14] MEDS: INSULIN LISPRO 100 UNIT/ML SUB-Q SCH (10:02)
[2020-09-14] MEDS: FUROSEMIDE 40 MG/4 ML INJ IV SCH (10:03)
[2020-09-14] MEDS: APIXABAN 5 MG TAB PO SCH (10:03)
[2020-09-14] MEDS: LISINOPRIL 10 MG TAB PO SCH (10:03)
[2020-09-14] MEDS: carvediloL 3.125 MG TAB PO SCH (10:03)
[2020-09-14] MEDS: FAMOTIDINE 20 MG TAB PO SCH (10:03)
--- NOTE | 2020-09-14 10:52 | Progress Note ---
Assessment and Plan Atrial flutter, new onset with Acute HFpEF * Anticoagulated on Eliquis. Rate currently well controlled on Coreg * Echocardiogram reviewed (09/12/2020): LVEF is 60 to 65%. LV is normal size. LV SF is normal. Borderline LVH. RV is mildly dilated. RV SF is normal. RA moderately dilated. Moderate pulmonary hypertension RVSP is 54 mmHg. * Hypomagnesia is resolved * Patient appears to be near euvolemia, clinically dry. Discontinue diuretics Moderate Pulmonary HTN with dilated Right ventricular Cardiomyopathy * Continue current antihypertensive regimen of Coreg 6.25 twice daily, lisinopril 10 daily Tobacco Use, ETOH, Cocaine use * Cessation encouraged Patient reports no shortness of breath or chest pain overnight and is requesting to be discharged. Patient appears to be near euvolemia. New onset of atrial flutter. Patient is appropriately anticoagulated and rate controlled. Patient may discharge from cardiology standpoint. Patient should follow-up with Dr Cardenas, [facility] heart specialists in our [place] location on 09/26/2020 at 3:30 PM. #[phone] Pt seen in conjunction with Dr. Foreman, who agrees with the assessment and plan of care. - Patient Problems (1) Acute respiratory failure Current Visit: Yes Status: Acute (2) Acute heart failure Current Visit: Yes Status: Suspected (3) New onset atrial flutter Current Visit: Yes Status: Acute (4) Hypomagnesemia Current Visit: Yes Status: Acute (5) Hypertension Current Visit: Yes Status: Chronic Qualifiers: Hypertension type: primary hypertension Qualified Code(s): I10 - Essential (primary) hypertension (6) Diabetes Current Visit: Yes Status: Chronic (7) Tobacco abuse Current Visit: Yes Status: Chronic (8) ETOH abuse Current Visit: Yes Status: Chronic (9) Cocaine abuse Current Visit: No Status: Chronic (10) Pulmonary HTN Current Visit: No Status: Acute Subjective Date of service: 09/14/20 Principal diagnosis: New Onset A fib/flutter Interval history: Patient resting comfortably in bed. No chest pain or shortness of breath overnight Telemetry reviewed: Atrial flutter 70s. No events Objective Last Vital Signs Temp 98.4 F 09/14/20 08:17 Pulse 69 09/14/20 10:00 Resp 18 09/14/20 08:17 BP 160/86 09/14/20 08:17 Pulse Ox 97 09/14/20 08:17 - Physical Examination General: No Apparent Distress HEENT: Positive: PERRL, Normocephaly, Mucus Membranes Moist Neck: Positive: neck supple, trachea midline. Negative: JVD/HJR Cardiac: Positive: irregularly irregular, S1/S2 Lungs: Positive: Normal Exam, Normal Breath Sounds Neuro: Positive: Grossly Intact Abdomen: Positive: Soft. Negative: Tender Skin: Negative: Rash Musculoskeletal: No Pain Extremities: Present: upper extr. pulses, lower extr. pulses. Absent: edema - Imaging and Cardiology EKG: report reviewed, image reviewed Echo: report reviewed (Echocardiogram reviewed (09/12/2020): LVEF is 60 to 65%. LV is normal size. LV SF is normal. Borderline LVH. RV is mildly dilated. RV SF is normal. RA moderately dilated. Moderate pulmonary hypertension RVSP is 54 mmHg.) - Telemetry EKG Rhythm: Atrial Flutter
--- NOTE | 2020-09-14 11:27 | Discharge Summary ---
Providers - Providers Date of Admission: 09/12/20 12:51 Date of discharge: 09/14/20 Attending physician: HEATHER SANCHEZ 09/12/20 06:19 Consult to Physician [CONS] Routine Comment: Consulting Provider: KATHI SMITH Physician Instructions: Reason For Exam: a-fib Primary care physician: TRE BROUSSARD MD Hospitalization Reason for admission: chf Condition: Stable Hospital course: Pt is a 75-year-old AA male with a hx of HTN and DM who presented with complaints of SOB/HARPER for the past few days. He reports that he would not be able to make it more than detention down the hallway currently without sx. He does not endorse orthopnea but does sleep propped up with 2-3 pillows at home. Pt denied chest pain, palpitations, or any additional cardiac complaints. BNP mildly elevated. No acute findings on CXR. ECG upon admission reveals atrial flutter with 4:1 conduction. Tele reviewed - AFlutter 70-80s. Pt denied a hx of AF or other arrhythmias. No prior cardiac workup available for review. Pt was admitted with dx of Acute hypoxic respiratory failure, acute diastolic HF, New onset atrial flutter, Hypomagnesemia, Hypertension, Diabetes mellitus type 2, Tobacco abuse, EtOH abuse, Cocaine abuse Hospital course: 09/12/2020. Echocardiogram revealed LVEF is 60 to 65%. LV is normal size. LV SF is normal. Borderline LVH. RV is mildly dilated. RV SF is normal. RA moderately dilated. Moderate pulmonary hypertension RVSP is 54 mmHg. 09/13/2020. Cardiology started Eliquis for new onset atrial flutter. Aspirin discontinued. Continue Coreg per cardiology recommendations. IV Lasix for diuresis. Follow-up echocardiogram. 09/14/20. Cont. Eliquis for anticoagulation and Coreg for rate control. Cardiology reports that Patient appears to be near euvolemia. New onset of atrial flutter. Patient is appropriately anticoagulated and rate controlled. Patient may discharge from cardiology standpoint. D/C time 34 min Disposition: DC-01 TO HOME OR SELFCARE Final Discharge Diagnosis (Prints w/discharge instructions): Acute hypoxic re spiratory failure, acute diastolic HF, New onset atrial flutter, Hypomagnesemia, Hypertension, Diabetes mellitus type 2, Tobacco abuse, EtOH abuse, Cocaine abuse Core Measure Documentation - Palliative Care Palliative Care/ Comfort Measures: Not Applicable - Core Measures Any of the following diagnoses?: none Exam - Constitutional Vitals: Temp Pulse Resp BP Pulse Ox 98.4 F 69 18 160/86 97 09/14/20 08:17 09/14/20 10:00 09/14/20 08:17 09/14/20 08:17 09/14/20 08:17 General appearance: Present: no acute distress, well-nourished - EENT Eyes: Present: PERRL ENT: hearing intact, clear oral mucosa - Neck Neck: Present: supple, normal ROM - Respiratory Respiratory effort: normal Respiratory: bilateral: CTA - Cardiovascular Heart Sounds: Present: S1 & S2. Absent: rub, click - Extremities Extremities: pulses symmetrical, No edema Peripheral Pulses: within normal limits - Abdominal General gastrointestinal: Present: soft, non-tender, non-distended, normal bowel sounds Male genitourinary: Present: normal - Integumentary Integumentary: Present: clear, warm, dry - Musculoskeletal Musculoskeletal: gait normal, strength equal bilaterally - Psychiatric Psychiatric: appropriate mood/affect, intact judgment & insight - Neurologic Neurologic: CNII-XII intact, moves all extremities Plan Activity: advance as tolerated Weight Bearing Status: Weight Bear as Tolerated Diet: low fat, low cholesterol, low salt Follow up with: NATALIE BROUSSARD,TRE MARCOS MD [Primary Care Provider] - 7 Days EVARISTO GAVIRIA MD [Staff Physician] - 7 Days Prescriptions: carvediloL [Coreg] 6.25 mg PO BID #60 tablet Apixaban [Eliquis] 5 mg PO Q12HR #60 tablet AtorvaSTATin [Lipitor] 40 mg PO QHS #60 tablet lisinopriL [Zestril TAB] 10 mg PO QDAY #30 tablet
--- NOTE | 2020-09-14 17:41 | Electrocardiograph Report ---
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
--- NOTE | 2020-09-14 17:44 | Electrocardiograph Report ---
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
== END 2020-09-14 13:55 | disposition home or self-care (01) | DRG 291 ==
LOC: ED 01:12 → 4A 05:05 → OBSVTOIN 12:51
PROVIDERS: ADMIT Hospitalist; ATTEND Hospitalist
DX: I11.0 Hypertensive heart disease with heart failure (principal); I50.31 Acute diastolic (congestive) heart failure; J96.00 Acute respiratory failure, unspecified whether with hypoxia or hypercapnia; I48.92 Unspecified atrial flutter; E83.42 Hypomagnesemia; F14.129 Cocaine abuse with intoxication, unspecified; I27.20 Pulmonary hypertension, unspecified; F10.10 Alcohol abuse, uncomplicated; E11.9 Type 2 diabetes mellitus without complications; G89.29 Other chronic pain; M54.9 Dorsalgia, unspecified; F17.200 Nicotine dependence, unspecified, uncomplicated; I48.91 Unspecified atrial fibrillation; F14.10 Cocaine abuse, uncomplicated; Z79.899 Other long term (current) drug therapy; Z79.891 Long term (current) use of opiate analgesic; Z79.01 Long term (current) use of anticoagulants; Z82.49 Family history of ischemic heart disease and other diseases of the circulatory system
CPT/HCPCS: 36415; 70450; 71045; 80053; 81001; 82962; 83735; 83880; 84132; 84443; 84484; 85025; 85610; 93005; 93306; 96365; 99406; G0378; A9270-GY; J1650; J1815; J1940; J3475

== ENCOUNTER 2020-10-02 16:06 | Observation (INO) | payer MEDICARE ==
[2020-10-02] MEDS ORDERED: ASPIRIN 325 MG TAB PO ONE (16:19)
--- NOTE | 2020-10-02 16:38 | Emergency Department Report ---
ED General Adult HPI - General Chief complaint: Chest Pain Stated complaint: CHEST PAIN PUI?: No Time Seen by Provider: 10/02/20 16:34 Source: patient, RN notes reviewed, old records reviewed Mode of arrival: Ambulatory Limitations: No Limitations - History of Present Illness Initial comments: Cardiology: [facility]. Past medical history: Atrial flutter, on Eliquis, hypertension, diabetes, history of obstructive sleep apnea, pulmonary hypertension, noncompliance with CPAP. Up-to-date with COVID-19 vaccination. The patient is a 75-year-old gentleman. He is not known to myself previously. He presents to the ER today with a complaint of nontraumatic left-sided chest pain which does not radiate to the back, arms or neck. There is no vomiting or diaphoresis. He denies exertional shortness of breath. He has taken his aspirin as instructed, as well as Eliquis. The patient denies Covid symptomatology. He denies heavy lifting. He is right- hand dominant. The pain is constant since this morning. It increases with deep inspiration. He denies headache, neck pain, abdominal pain, hematemesis, bright red blood per rectum. He denies leg pain, leg swelling, immobilization, travel, and recent surgery. He was recently admitted to this hospital in the beginning of this month for new onset A. flutter. No recent cardiac stress test that he is aware of. -: Gradual, hour(s) Location: chest Radiation: non-radiation Consistency: constant Improves with: none Worsens with: other (Deep inspiration) - Related Data Home Medications Medication Instructions Recorded Confirmed Last Taken Apixaban [Eliquis] 5 mg PO Q12HR 10/02/20 10/02/20 1 Day Ago ~10/01/20 Atorvastatin [Lipitor Tab] 40 mg PO DAILY 10/02/20 10/02/20 1 Day Ago ~10/01/20 Cholecalciferol (Vitamin D3) 2,000 unit DAILY 10/02/20 10/02/20 1 Day Ago [Vitamin D3 2,000 UNIT CAP] ~10/01/20 Furosemide [Lasix] 40 mg DAILY 10/02/20 10/02/20 1 Day Ago ~10/01/20 Gabapentin 300 mg PO BID 10/02/20 10/02/20 1 Day Ago ~10/01/20 Glimepiride [Amaryl] 4 mg PO QAM 10/02/20 10/02/20 1 Day Ago ~10/01/20 Metformin HCl [metFORMIN] 1,000 mg PO BID 10/02/20 10/02/20 1 Day Ago ~10/01/20 [place]-3/Dha/Epa/Fish Oil [[place] 3 500 mg PO DAILY 10/02/20 10/02/20 1 Day Ago 500 Softgel] ~10/01/20 Pantoprazole Sodium 40 mg PO DAILY 10/02/20 10/02/20 1 Day Ago ~10/01/20 Pioglitazone HCl [Actos] 45 mg PO DAILY 10/02/20 10/02/20 1 Day Ago ~10/01/20 Tamsulosin [Flomax] 0.4 mg PO QDAY 10/02/20 10/02/20 1 Day Ago ~10/01/20 Vitamin B12 1,000 mcg DAILY 10/02/20 10/02/20 1 Day Ago ~10/01/20 carvediloL [Coreg] 6.25 mg PO BID 10/02/20 10/02/20 1 Day Ago ~10/01/20 Allergies Allergy/AdvReac Type Severity Reaction Status Date / Time No Known Allergies Allergy Verified 09/12/20 06:29 ED Review of Systems ROS: Stated complaint: CHEST PAIN Other details as noted in HPI Constitutional: other (Denies loss of taste and smell). denies: fever Eyes: denies: eye discharge Respiratory: shortness of breath Cardiovascular: chest pain Gastrointestinal: denies: abdominal pain, nausea, vomiting, hematemesis, melena, hematochezia Genitourinary: denies: dysuria Musculoskeletal: denies: back pain Neurological: denies: weakness Hematological/Lymphatic: denies: easy bleeding ED Past Medical Hx - Past Medical History Hx Hypertension: Yes Hx Congestive Heart Failure: Yes Hx Diabetes: Yes Additional medical history: CHRONIC BACK PAIN - Surgical History Additional Surgical History: LEFT FOREARM SURGERY. BACK SURGERY - Social History Smoking Status: Current Some Day Smoker - Medications Home Medications: Home Medications Medication Instructions Recorded Confirmed Last Taken Type Apixaban [Eliquis] 5 mg PO Q12HR 10/02/20 10/02/20 1 Day Ago History ~10/01/20 Atorvastatin [Lipitor Tab] 40 mg PO DAILY 10/02/20 10/02/20 1 Day Ago History ~10/01/20 Cholecalciferol (Vitamin D3) 2,000 unit DAILY 10/02/20 10/02/20 1 Day Ago History [Vitamin D3 2,000 UNIT CAP] ~10/01/20 Furosemide [Lasix] 40 mg DAILY 10/02/20 10/02/20 1 Day Ago History ~10/01/20 Gabapentin 300 mg PO BID 10/02/20 10/02/20 1 Day Ago History ~10/01/20 Glimepiride [Amaryl] 4 mg PO QAM 10/02/20 10/02/20 1 Day Ago History ~10/01/20 Metformin HCl [metFORMIN] 1,000 mg PO BID 10/02/20 10/02/20 1 Day Ago History ~10/01/20 [place]-3/Dha/Epa/Fish Oil [[place] 3 500 mg PO DAILY 10/02/20 10/02/20 1 Day Ago History 500 Softgel] ~10/01/20 Pantoprazole Sodium 40 mg PO DAILY 10/02/20 10/02/20 1 Day Ago History ~10/01/20 Pioglitazone HCl [Actos] 45 mg PO DAILY 10/02/20 10/02/20 1 Day Ago History ~10/01/20 Tamsulosin [Flomax] 0.4 mg PO QDAY 10/02/20 10/02/20 1 Day Ago History ~10/01/20 Vitamin B12 1,000 mcg DAILY 10/02/20 10/02/20 1 Day Ago History ~10/01/20 carvediloL [Coreg] 6.25 mg PO BID 10/02/20 10/02/20 1 Day Ago History ~10/01/20 ED Physical Exam - General Limitations: No Limitations General appearance: alert, in no apparent distress - Head Head exam: Present: atraumatic, normocephalic - Eye Eye exam: Present: normal appearance, EOMI. Absent: nystagmus - ENT ENT exam: Present: normal exam, normal orophraynx, mucous membranes moist, normal external ear exam - Neck Neck exam: Present: normal inspection, full ROM. Absent: tenderness, meningismus - Respiratory Respiratory exam: Present: rales, rhonchi, other (Faint rales and rhonchi noted in the left lateral hemithorax). Absent: respiratory distress, wheezes, stridor - Cardiovascular Cardiovascular Exam: Present: regular rate, irregular rhythm, normal heart sounds. Absent: bradycardia, tachycardia, systolic murmur, diastolic murmur, rubs, gallop - GI/Abdominal GI/Abdominal exam: Present: soft. Absent: distended, tenderness, guarding, kelsey ound, rigid, pulsatile mass - Rectal Rectal exam: Present: deferred - Extremities Exam Extremities exam: Present: normal inspection, full ROM, pedal edema (1+ edema in the bilateral lower extremities), other (2+ pulses noted in the bilateral upper and lower extremities. There is no palpable cord. negative Homans sign. Muscular compartments are soft. The pelvis is stable.). Absent: calf tenderness - Back Exam Back exam: Present: normal inspection, full ROM. Absent: tenderness, CVA tenderness (R), CVA tenderness (L), paraspinal tenderness, vertebral tenderness - Neurological Exam Neurological exam: Present: alert, oriented X3, other (No facial droop. Tongue midline. Extraocular movements intact bilaterally. Facial sensation intact to light touch in V1, V2, V3 distribution bilaterally. 5 and a 5 strength in 4 extremities. Sensation intact to light touch in 4 extremities.). Absent: motor sensory deficit - Psychiatric Psychiatric exam: Present: flat affect - Skin Skin exam: Present: warm, dry, intact, normal color. Absent: rash ED Course Vital Signs 10/02/20 10/02/20 10/02/20 16:15 16:45 16:46 Temperature 97.9 F Pulse Rate 71 97 H Respiratory 20 Rate Blood Pressure 151/82 O2 Sat by Pulse 99 94 100 Oximetry 10/02/20 10/02/20 10/02/20 16:47 16:48 16:50 Temperature Pulse Rate 68 68 67 Respiratory 15 12 18 Rate Blood Pressure 135/76 135/76 135/76 O2 Sat by Pulse 100 100 100 Oximetry 10/02/20 10/02/20 10/02/20 16:52 16:54 16:56 Temperature Pulse Rate 67 67 68 Respiratory 20 20 14 Rate Blood Pressure 135/76 141/76 141/76 O2 Sat by Pulse 100 100 100 Oximetry 10/02/20 10/02/20 10/02/20 16:58 17:00 17:02 Temperature Pulse Rate 67 67 68 Respiratory 20 15 12 Rate Blood Pressure 141/76 141/76 141/76 O2 Sat by Pulse 100 99 100 Oximetry 10/02/20 17:04 Temperature Pulse Rate 70 Respiratory 14 Rate Blood Pressure 141/76 O2 Sat by Pulse 100 Oximetry - Reevaluation(s) Reevaluation #1: 10/02/20 16:59 Differential diagnosis, including but not limited to: Acute coronary syndrome, GERD, gastritis, hiatal hernia, pneumonia, pulmonary embolism, pleurisy, pericarditis, myocarditis Assessment and plan: 75-year-old gentleman, who is currently on Eliquis, with reported new onset a flutter, known history of sleep apnea, noncompliance with CPAP, known pulmonary hypertension, revealed on recent echocardiogram, with left-sided acute chest pain which is partially pleuritic in nature. No recent cardiac risk ratification. Patient moderate risk for major adverse cardiac event as per heart score. Place patient on life skills teacher. Treat with acetaminophen, morphine, nitroglycerin (patient endorses no contraindications to nitroglycerin). 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 Admit to the medical service for cardiac risk ratification after initial diagnostics have resulted. I have discussed this plan of care with the patient, who is verbalized understanding, and is agreeable to this plan of care. Discussed history, physical, pertinent laboratory studies and EKG findings with with covering cardiology, Dr. Nuvia Cardenas, who is familiar with this patient, [facility] cardiology will follow in consultation. Troponin negative x1. Given pleuritic component, recent hospitalization, new onset a flutter, which I suspect is likely secondary to underlying obstructive sleep apnea and resultant pulmonary hypertension, we will send D-dimer, although I think a pulmonary embolism is very unlikely. Outpatient follow-up for pulmonary hypertension, sleep apnea, and noncompliance with CPAP. Hospital physician, Dr. Dimas to admit patient to the medical service. 10/02/20 17:02 10/02/20 17:49 D-dimer negative. Hypomagnesemia appreciated. Magnesium supplementation orde red. Given normal troponin, lack of tachycardia, lack of fever, pericarditis, myocarditis are very unlikely. The EKG morphology is also not consistent with these entities. ED Medical Decision Making - Lab Data Result diagrams: 10/02/20 16:28 10/02/20 16:28 Vital Signs 10/02/20 10/02/20 10/02/20 16:15 16:45 16:46 Temperature 97.9 F Pulse Rate 71 97 H Respiratory 20 Rate Blood Pressure 151/82 O2 Sat by Pulse 99 94 100 Oximetry 10/02/20 10/02/20 16:47 16:48 Temperature Pulse Rate 68 68 Respiratory 15 12 Rate Blood Pressure 135/76 135/76 O2 Sat by Pulse 100 100 Oximetry Lab Results 10/02/20 Range/Units 16:28 WBC 6.5 (4.5-11.0) K/mm3 RBC 4.41 (3.65-5.03) M/mm3 Hgb 13.0 (11.8-15.2) gm/dl Hct 39.2 (35.5-45.6) % MCV 89 (84-94) fl MCH 30 (28-32) pg MCHC 33 (32-34) % RDW 13.5 (13.2-15.2) % Plt Count 340 (140-440) K/mm3 Lymph % (Auto) 39.4 H (13.4-35.0) % [place] % (Auto) 11.5 H (0.0-7.3) % Eos % (Auto) 4.8 H (0.0-4.3) % Baso % (Auto) 0.5 (0.0-1.8) % Lymph # (Auto) 2.6 (1.2-5.4) K/mm3 [place] # (Auto) 0.7 (0.0-0.8) K/mm3 Eos # (Auto) 0.3 (0.0-0.4) K/mm3 Baso # (Auto) 0.0 (0.0-0.1) K/mm3 Seg Neutrophils % 43.8 (40.0-70.0) % Seg Neutrophils # 2.8 (1.8-7.7) K/mm3 Vital Signs 10/02/20 10/02/20 10/02/20 16:15 16:45 16:46 Temperature 97.9 F Pulse Rate 71 97 H Respiratory 20 Rate Blood Pressure 151/82 O2 Sat by Pulse 99 94 100 Oximetry 10/02/20 10/02/20 16:47 16:48 Temperature Pulse Rate 68 68 Respiratory 15 12 Rate Blood Pressure 135/76 135/76 O2 Sat by Pulse 100 100 Oximetry Lab Results 10/02/20 10/02/20 Range/Units 16:28 16:28 WBC 6.5 (4.5-11.0) K/mm3 RBC 4.41 (3.65-5.03) M/mm3 Hgb 13.0 (11.8-15.2) gm/dl Hct 39.2 (35.5-45.6) % MCV 89 (84-94) fl MCH 30 (28-32) pg MCHC 33 (32-34) % RDW 13.5 (13.2-15.2) % Plt Count 340 (140-440) K/mm3 Lymph % (Auto) 39.4 H (13.4-35.0) % [place] % (Auto) 11.5 H (0.0-7.3) % Eos % (Auto) 4.8 H (0.0-4.3) % Baso % (Auto) 0.5 (0.0-1.8) % Lymph # (Auto) 2.6 (1.2-5.4) K/mm3 [place] # (Auto) 0.7 (0.0-0.8) K/mm3 Eos # (Auto) 0.3 (0.0-0.4) K/mm3 Baso # (Auto) 0.0 (0.0-0.1) K/mm3 Seg Neutrophils % 43.8 (40.0-70.0) % Seg Neutrophils # 2.8 (1.8-7.7) K/mm3 Sodium 139 (137-145) mmol/L Potassium 4.4 (3.6-5.0) mmol/L Chloride 100.9 (98-107) mmol/L Carbon Dioxide 27 (22-30) mmol/L Anion Gap 16 mmol/L BUN 11 (9-20) mg/dL Creatinine 1.1 (0.8-1.3) mg/dL Estimated GFR > 60 ml/min BUN/Creatinine Ratio 10 % Glucose 130 H (75-100) mg/dL Calcium 9.9 (8.4-10.2) mg/dL Total Bilirubin 0.20 (0.1-1.2) mg/dL AST 14 (5-40) units/L ALT 14 (7-56) units/L Alkaline Phosphatase 49 (35-129) units/L Troponin T < 0.010 (0.00-0.029) ng/mL Total Protein 7.4 (6.3-8.2) g/dL Albumin 3.9 (3.9-5) g/dL Albumin/Globulin Ratio 1.1 % Lab Results 10/02/20 10/02/20 10/02/20 Range/Units 16:28 16:28 17:03 WBC 6.5 (4.5-11.0) K/mm3 RBC 4.41 (3.65-5.03) M/mm3 Hgb 13.0 (11.8-15.2) gm/dl Hct 39.2 (35.5-45.6) % MCV 89 (84-94) fl MCH 30 (28-32) pg MCHC 33 (32-34) % RDW 13.5 (13.2-15.2) % Plt Count 340 (140-440) K/mm3 Lymph % (Auto) 39.4 H (13.4-35.0) % [place] % (Auto) 11.5 H (0.0-7.3) % Eos % (Auto) 4.8 H (0.0-4.3) % Baso % (Auto) 0.5 (0.0-1.8) % Lymph # (Auto) 2.6 (1.2-5.4) K/mm3 [place] # (Auto) 0.7 (0.0-0.8) K/mm3 Eos # (Auto) 0.3 (0.0-0.4) K/mm3 Baso # (Auto) 0.0 (0.0-0.1) K/mm3 Seg Neutrophils % 43.8 (40.0-70.0) % Seg Neutrophils # 2.8 (1.8-7.7) K/mm3 PT 14.1 (12.2-14.9) Sec. INR 1.03 (0.87-1.13) D-Dimer < 135.00 (0-234) ng/mlDDU Sodium 139 (137-145) mmol/L Potassium 4.4 (3.6-5.0) mmol/L Chloride 100.9 (98-107) mmol/L Carbon Dioxide 27 (22-30) mmol/L Anion Gap 16 mmol/L BUN 11 (9-20) mg/dL Creatinine 1.1 (0.8-1.3) mg/dL Estimated GFR > 60 ml/min BUN/Creatinine Ratio 10 % Glucose 130 H (75-100) mg/dL Calcium 9.9 (8.4-10.2) mg/dL Magnesium (1.7-2.3) mg/dL Total Bilirubin 0.20 (0.1-1.2) mg/dL AST 14 (5-40) units/L ALT 14 (7-56) units/L Alkaline Phosphatase 49 (35-129) units/L Total Creatine Kinase (55-170) units/L Troponin T < 0.010 (0.00-0.029) ng/mL NT-Pro-B Natriuret Pep (0-900) pg/mL Total Protein 7.4 (6.3-8.2) g/dL Albumin 3.9 (3.9-5) g/dL Albumin/Globulin Ratio 1.1 % 10/02/20 Range/Units 17:03 WBC (4.5-11.0) K/mm3 RBC (3.65-5.03) M/mm3 Hgb (11.8-15.2) gm/dl Hct (35.5-45.6) % MCV (84-94) fl MCH (28-32) pg MCHC (32-34) % RDW (13.2-15.2) % Plt Count (140-440) K/mm3 Lymph % (Auto) (13.4-35.0) % [place] % (Auto) (0.0-7.3) % Eos % (Auto) (0.0-4.3) % Baso % (Auto) (0.0-1.8) % Lymph # (Auto) (1.2-5.4) K/mm3 [place] # (Auto) (0.0-0.8) K/mm3 Eos # (Auto) (0.0-0.4) K/mm3 Baso # (Auto) (0.0-0.1) K/mm3 Seg Neutrophils % (40.0-70.0) % Seg Neutrophils # (1.8-7.7) K/mm3 PT (12.2-14.9) Sec. INR (0.87-1.13) D-Dimer (0-234) ng/mlDDU Sodium (137-145) mmol/L Potassium (3.6-5.0) mmol/L Chloride (98-107) mmol/L Carbon Dioxide (22-30) mmol/L Anion Gap mmol/L BUN (9-20) mg/dL Creatinine (0.8-1.3) mg/dL Estimated GFR ml/min BUN/Creatinine Ratio % Glucose (75-100) mg/dL Calcium (8.4-10.2) mg/dL Magnesium 1.20 L (1.7-2.3) mg/dL Total Bilirubin (0.1-1.2) mg/dL AST (5-40) units/L ALT (7-56) units/L Alkaline Phosphatase (35-129) units/L Total Creatine Kinase 67 (55-170) units/L Troponin T < 0.010 (0.00-0.029) ng/mL NT-Pro-B Natriuret Pep 250.1 (0-900) pg/mL Total Protein (6.3-8.2) g/dL Albumin (3.9-5) g/dL Albumin/Globulin Ratio % - EKG Data -: EKG Interpreted by Me - EKG Data 10/02/20 16:58 EKG #1 is interpreted at 16: 18 This is atrial flutter, with 4-1 block. There is a normal axis, with left ventricular hypertrophy. QTC 454 ms. This is not a STEMI. This is an abnormal EKG. This appears to be unchanged from prior EKG from September 12, 2020 - Radiology Data Radiology results: pending, report reviewed, image reviewed interpreted by me: 2 view x-rays of chest, interpreted by myself, negative for acute findings. No obvious infiltrate, or pneumothorax. [facility] [address] [place] [address] XRay Report Signed Patient: MARCELINA ELDRIDGE MR#: [id number] : 1945 Acct:[id number] Age/Sex: 75 / M ADM Date: 10/02/20 Loc: ED Attending Dr: Ordering Physician: ROSALES DUFFY MD Date of Service: 10/02/20 Procedure(s): XR chest routine 2V Accession Number(s): [id number] cc: ROSALES DUFFY MD Fluoro Time In Minutes: CHEST 1 VIEW 1638 INDICATION / CLINICAL INFORMATION: CHEST PAIN COMPARISON: 09/12/2020 FINDINGS: SUPPORT DEVICES: None HEART / MEDIASTINUM: No significant abnormality. LUNGS / PLEURA: No significant pulmonary or pleural abnormality. No pneumothorax. ADDITIONAL FINDINGS: No significant additional findings. IMPRESSION: No significant acute abnormality Signer Name: Bowen Jenkins MD Signed: 10/02/2020 4:58 PM Workstation Name: [id number] Transcribed By: GJ Dictated By: Bowen Jenkins MD Electronically Authenticated By: Bowen Jenkins MD Signed Date/Time: 10/02/20 9060 Critical care attestation.: If time is entered above; I have spent that time in minutes in the direct care of this critically ill patient, excluding procedure time. ED Disposition Clinical Impression: New onset atrial flutter, Acute chest pain, History of sleep apnea, Noncompliance, Hypomagnesemia Disposition: OP ADMIT IP TO THIS HOSP Is pt being admited?: Yes Does the pt Need Aspirin: No Condition: Good Instructions: Chest Pain (ED) Heart Score - HEART Score History: Slightly suspicious EKG: Non-specific Age: > 65 Risk factors: > 3 risk factors or hx of atherosclerotic disease Troponin: < normal limit HEART Score: 5 - EKG Read Time Time EKG Completed: 16:18 EKG Read Time: 16:18 - Critical Actions Critical Actions: 4-6 pts:12-16.6% risk of adverse cardiac event. Should be admitted
[2020-10-02 16:39] LABS: Basophils % (Auto) 0.5 % (0.0-1.8); Eosinophils # (Auto) 0.3 K/mm3 (0.0-0.4); Eosinophils % (Auto) 4.8 % (0.0-4.3); Hematocrit 39.2 % (35.5-45.6); Lymphocytes # (Auto) 2.6 K/mm3 (1.2-5.4); Lymphocytes % (Auto) 39.4 % (13.4-35.0); Mean Corpuscular HGB Conc 33 % (32-34); Mean Corpuscular Volume 89 fl (84-94); Monocytes # (Auto) 0.7 K/mm3 (0.0-0.8); Monocytes % (Auto) 11.5 % (0.0-7.3); Platelet Count 340 K/mm3 (140-440); Red Blood Count 4.41 M/mm3 (3.65-5.03); Red Cell Distribution Width 13.5 % (13.2-15.2)
[2020-10-02] MEDS ORDERED: ACETAMINOPHEN 500 MG TAB PO ONE (16:53)
[2020-10-02] MEDS ORDERED: NITROGLYCERIN 0.4 MG TAB SUBL SL PRN ×2 (16:53→17:07)
[2020-10-02] MEDS ORDERED: MORPHINE 4 MG/1 ML INJ IV ONE (16:53)
[2020-10-02 17:01] LABS: Alanine Aminotransferase 14 units/L (7-56); Albumin 3.9 g/dL (3.9-5); BUN/Creatinine Ratio 10; Blood Urea Nitrogen 11 mg/dL (9-20); Calcium 9.9 mg/dL (8.4-10.2); Hemolysis Index 9
--- NOTE | 2020-10-02 17:03 | XRay Report ---
CHEST 1 VIEW 1638 INDICATION / CLINICAL INFORMATION: CHEST PAIN COMPARISON: 09/12/2020 FINDINGS: SUPPORT DEVICES: None HEART / MEDIASTINUM: No significant abnormality. LUNGS / PLEURA: No significant pulmonary or pleural abnormality. No pneumothorax. ADDITIONAL FINDINGS: No significant additional findings. IMPRESSION: No significant acute abnormality Signer Name: Bowen Jenkins MD Signed: 10/02/2020 4:58 PM Workstation Name: [id number]
--- NOTE | 2020-10-02 17:05 | History and Physical Report ---
History of Present Illness Chief complaint: My chest was hurting History of present illness: 75 YO Male with HTN, DM complicated by Neuropathy, Atrial Fib on therapeutic anticoagulation with Eliquis, HLD, GERD, Pulmonary HTN presents to ED for evaluation. Patient reports "my chest was hurting". Patient states that he has experienced pain in his chest over the last 2 days with intermittent symptoms over the same timeframe. Patient states the pain is intermittent, 5/10, worsened with exertion, relieved with rest. Patient acknowledges decreased exercise tolerance. Patient denies additional exertion, dyspnea at rest. Patient transported to [facility] via private vehicle for further care and evaluation of the aforementioned symptoms. Patient seen and evaluated in the emergency department. All lab and imaging studies reviewed. Patient found to have angina at rest, as well as clinical symptoms consistent with CHF decompensation. Patient admitted to telemetry and initiated on CHF protocol as well as chest jose manuel n protocol. Cardiology team consulted in ED. Patient denies fever, chills, palpitation, productive cough, skin rash, recent ill contacts, trauma, unilateral leg swelling, calf pain, individual/family history of DVT/PE/bleeding/blood clotting disorders, or known exposure to COVID-19. Prior admission on 04/15/2020 reviewed. All medication listed at time of admission has been reconciled. Advanced care planning conducted in ED. Past History Past Medical History: atrial fib, diabetes, GERD, hypertension, hyperlipidemia Past Surgical History: No surgical history, Other (Reviewed) Social history: . denies: smoking, alcohol abuse Family history: diabetes, hypertension Medications and Allergies Allergies Allergy/AdvReac Type Severity Reaction Status Date / Time No Known Allergies Allergy Verified 09/12/20 06:29 Home Medications Medication Instructions Recorded Confirmed Last Taken Type Apixaban [Eliquis] 5 mg PO Q12HR 10/02/20 10/02/20 1 Day Ago History ~10/01/20 Atorvastatin [Lipitor Tab] 40 mg PO DAILY 10/02/20 10/02/20 1 Day Ago History ~10/01/20 Cholecalciferol (Vitamin D3) 2,000 unit DAILY 10/02/20 10/02/20 1 Day Ago History [Vitamin D3 2,000 UNIT CAP] ~10/01/20 Furosemide [Lasix] 40 mg DAILY 10/02/20 10/02/20 1 Day Ago History ~10/01/20 Gabapentin 300 mg PO BID 10/02/20 10/02/20 1 Day Ago History ~10/01/20 Glimepiride [Amaryl] 4 mg PO QAM 10/02/20 10/02/20 1 Day Ago History ~10/01/20 Metformin HCl [metFORMIN] 1,000 mg PO BID 10/02/20 10/02/20 1 Day Ago History ~10/01/20 [place]-3/Dha/Epa/Fish Oil [[place] 3 500 mg PO DAILY 10/02/20 10/02/20 1 Day Ago History 500 Softgel] ~10/01/20 Pantoprazole Sodium 40 mg PO DAILY 10/02/20 10/02/20 1 Day Ago History ~10/01/20 Pioglitazone HCl [Actos] 45 mg PO DAILY 10/02/20 10/02/20 1 Day Ago History ~10/01/20 Tamsulosin [Flomax] 0.4 mg PO QDAY 10/02/20 10/02/20 1 Day Ago History ~10/01/20 Vitamin B12 1,000 mcg DAILY 10/02/20 10/02/20 1 Day Ago History ~10/01/20 carvediloL [Coreg] 6.25 mg PO BID 10/02/20 10/02/20 1 Day Ago History ~10/01/20 Active Meds: Active Medications Nitroglycerin (Nitroglycerin 0.4 Mg Tab Subl) 0.4 mg SL .Q5MIN PRN PRN Reason: Chest Pain Review of Systems Constitutional: no weight loss, no weight gain, no fever, no chills Ears, nose, mouth and throat: no ear pain, no ear discharge, no tinnitis, no decreased hearing, no nasal discharge Cardiovascular: chest pain, shortness of breath, dyspnea on exertion, no orthopnea, no palpitations Respiratory: no cough, no hemoptysis Gastrointestinal: no abdominal pain, no nausea, no vomiting, no diarrhea Genitourinary Male: no hematuria, no flank pain, no discharge, no urinary frequency, no urinary hesitancy Rectal: no pain, no incontinence, no bleeding Musculoskeletal: no neck pain, no shooting arm pain, no arm numbness/tingling, no shooting leg pain Integumentary: no rash, no pruritis, no redness, no wounds Neurological: no paralysis, no weakness, no numbness, no tingling, no seizures, no syncope Psychiatric: no anxiety, no memory loss, no sleep disturbances, no insomnia, no hypersomnia, no suicidal ideation Endocrine: no cold intolerance, no heat intolerance, no polyphagia, no excessive thirst, no polyuria, no nocturia, no excessive sweating Hematologic/Lymphatic: no easy bruising, no easy bleeding, no lymphadenopathy, no lymphedema Allergic/Immunologic: no urticaria, no wheezing, no anaphylaxis Exam - Constitutional Vitals: Temp Pulse Resp BP Pulse Ox 97.9 F 68 12 135/76 100 10/02/20 16:15 10/02/20 16:48 10/02/20 16:48 10/02/20 16:48 10/02/20 16:48 General appearance: Present: mild distress - EENT Eyes: Present: PERRL ENT: hearing intact, clear oral mucosa - Neck Neck: Present: supple, normal ROM - Respiratory Respiratory effort: normal Respiratory: bilateral: CTA - Cardiovascular Rhythm: irregularly irregular Heart Sounds: Present: S1 & S2. Absent: rub, click - Extremities Extremities: pulses symmetrical, No edema Peripheral Pulses: within normal limits - Abdominal General gastrointestinal: Present: soft, non-tender, non-distended, normal bowel sounds Male genitourinary: Present: normal - Integumentary Integumentary: Present: clear, warm, dry - Musculoskeletal Musculoskeletal: gait normal, strength equal bilaterally - Psychiatric Psychiatric: appropriate mood/affect, intact judgment & insight - Neurologic Neurologic: CNII-XII intact, moves all extremities HEART Score - HEART Score Troponin: Troponin T < 0.010 ng/mL (0.00-0.029) 10/02/20 16:28 Results - Labs CBC & Chem 7: 10/02/20 16:28 10/02/20 16:28 Labs: Abnormal lab results 10/02/20 10/02/20 Range/Units 16:28 16:28 Lymph % (Auto) 39.4 H (13.4-35.0) % [place] % (Auto) 11.5 H (0.0-7.3) % Eos % (Auto) 4.8 H (0.0-4.3) % Glucose 130 H (75-100) mg/dL Assessment and Plan - Patient Problems (1) Angina at rest Current Visit: Yes Status: Acute Plan to address problem: Chest pain protocol: Serial cardiac enzymes, EKG, telemetry, cardiology team consulted in ED, continue medical management, morphine, supplemental oxygen, nitro, aspirin. (2) CHF (congestive heart failure) Current Visit: Yes Status: Suspected Qualifiers: Heart failure type: diastolic Plan to address problem: Cardiology team consulted, echocardiogram from 09/27/2020 reviewed. Blood pre ssure control, strict I's/O, afterload reduction, supplemental oxygen, supportive care. (3) Pulmonary hypertension Current Visit: Yes Status: Acute Plan to address problem: Supportive care, supplemental oxygen, continue medical management. Cardiology team consulted. (4) DVT prophylaxis Current Visit: Yes Status: Acute Plan to address problem: SCD to bilateral lower extremities while in bed, continue therapeutic anticoagulation. (5) Advance care planning Current Visit: Yes Status: Acute Plan to address problem: Disease education conducted, care plan discussed, diagnosis discussed, prognosis discussed, patient is full code, patient knowledges understanding and agreement with care plan, +30 minutes.
[2020-10-02] MEDS ORDERED: traMADol 50 MG TAB PO PRN (17:07)
[2020-10-02] MEDS ORDERED: ASPIRIN 81 MG TAB CHEW PO STA (17:07)
[2020-10-02] MEDS ORDERED: HYDROmorphone 1 MG/1 ML INJ IV PRN (17:07)
[2020-10-02] MEDS ORDERED: ACETAMINOPHEN 325 MG TAB PO PRN ×2 (17:07)
[2020-10-02] MEDS ORDERED: oxyCODONE /ACETAMINOPHEN 5-325MG TAB PO PRN (17:07)
[2020-10-02] MEDS ORDERED: ALBUTEROL 2.5 MG/3 ML NEBU IH PRN (17:07)
[2020-10-02] MEDS ORDERED: ONDANSETRON 4 MG/2 ML INJ IV PRN (17:07)
[2020-10-02 17:23] LABS: INR 1.03 (0.87-1.13)
[2020-10-02] MEDS ORDERED: MAGNESIUM OXIDE 400 MG TAB PO STA (17:48)
[2020-10-02] MEDS ORDERED: MAGNESIUM SULFATE 2 GM/50 ML BAG IV ONE (17:48)
[2020-10-03 03:50] LABS: Alanine Aminotransferase 12 units/L (7-56); Albumin 3.3 g/dL (3.9-5); BUN/Creatinine Ratio 13; Blood Urea Nitrogen 14 mg/dL (9-20); Calcium 8.7 mg/dL (8.4-10.2); Hemolysis Index 7
[2020-10-03] MEDS ORDERED: DEXTROSE 50% IN WATER (25GM) 50 ML SYRINGE IV PRN (08:37)
--- NOTE | 2020-10-03 08:37 | Consultation ---
History of Present Illness Consult date: 10/03/20 Requesting physician: ROSALES DUFFY Consult reason: chest pain History of present illness: [employer] Director: Varun Cardenas Pt is a 75-year-old AA male who presented with complaints of chest pain since yesterday AM. He describes pain as left-sided pressure. Worse with deep breaths and exertion. Pt reports pain was constant since onset until he received IV morphine. He is currently chest pain-free. Pt does note associated SOB and lightheadedness. No additional cardiac complaints. Trop neg x 2. ECG reveals 4:1 atrial flutter, no acute ischemic changes. CXR reveals no acute findings. No recent ischemic eval on file. Pt reports his last stress test was > 15 years ago. Echo 09/12/2020 - EF 60-65%, indeterminate diastolic fxn, RA mod dilated, RVSP 54mmHg. Past History Past Medical History: atrial fib, diabetes, GERD, heart failure, hypertension, hyperlipidemia Past Surgical History: denies: valve replacement, CABG, PTCA Social history: , smoking (former), alcohol abuse (former), other (former cocaine use) Family history: diabetes, hypertension Medications and Allergies Allergies Allergy/AdvReac Type Severity Reaction Status Date / Time No Known Allergies Allergy Verified 09/12/20 06:29 Home Medications Medication Instructions Recorded Confirmed Last Taken Type Apixaban [Eliquis] 5 mg PO Q12HR 10/02/20 10/02/20 1 Day Ago History ~10/01/20 Atorvastatin [Lipitor Tab] 40 mg PO DAILY 10/02/20 10/02/20 1 Day Ago History ~10/01/20 Cholecalciferol (Vitamin D3) 2,000 unit DAILY 10/02/20 10/02/20 1 Day Ago History [Vitamin D3 2,000 UNIT CAP] ~10/01/20 Furosemide [Lasix] 40 mg DAILY 10/02/20 10/02/20 1 Day Ago History ~10/01/20 Gabapentin 300 mg PO BID 10/02/20 10/02/20 1 Day Ago History ~10/01/20 Glimepiride [Amaryl] 4 mg PO QAM 10/02/20 10/02/20 1 Day Ago History ~10/01/20 Metformin HCl [metFORMIN] 1,000 mg PO BID 10/02/20 10/02/20 1 Day Ago History ~10/01/20 [place]-3/Dha/Epa/Fish Oil [[place] 3 500 mg PO DAILY 10/02/20 10/02/20 1 Day Ago History 500 Softgel] ~10/01/20 Pantoprazole Sodium 40 mg PO DAILY 10/02/20 10/02/20 1 Day Ago History ~10/01/20 Pioglitazone HCl [Actos] 45 mg PO DAILY 10/02/20 10/02/20 1 Day Ago History ~10/01/20 Tamsulosin [Flomax] 0.4 mg PO QDAY 10/02/20 10/02/20 1 Day Ago History ~10/01/20 Vitamin B12 1,000 mcg DAILY 10/02/20 10/02/20 1 Day Ago History ~10/01/20 carvediloL [Coreg] 6.25 mg PO BID 10/02/20 10/02/20 1 Day Ago History ~10/01/20 Active Meds: Active Medications Acetaminophen (Acetaminophen 325 Mg Tab) 650 mg PO Q4H PRN PRN Reason: Pain MILD(1-3)/Fever >100.5/MURRAY Albuterol (Albuterol 2.5 Mg/3 Ml Nebu) 2.5 mg IH Q4HRT PRN PRN Reason: Shortness Of Breath Hydromorphone HCl (Hydromorphone 1 Mg/1 Ml Inj) 0.5 mg IV Q12H PRN PRN Reason: Pain , Severe (7-10) Nitroglycerin (Nitroglycerin 0.4 Mg Tab Subl) 0.4 mg SL Q5M PRN PRN Reason: Chest Pain Ondansetron HCl (Ondansetron 4 Mg/2 Ml Inj) 4 mg IV Q8H PRN PRN Reason: Nausea And Vomiting Oxycodone/Acetaminophen (Oxycodone /Acetaminophen 5-325mg Tab) 1 tab PO Q6H PRN PRN Reason: Pain, Moderate (4-6) Sodium Chloride (Sodium Chloride 0.9% 10 Ml Flush Syringe) 10 ml IV BID BRONSON Last Admin: 10/02/20 22:00 Dose: 10 ml Documented by: Sodium Chloride (Sodium Chloride 0.9% 10 Ml Flush Syringe) 10 ml IV PRN PRN PRN Reason: LINE FLUSH Tramadol HCl (Tramadol 50 Mg Tab) 50 mg PO Q6H PRN PRN Reason: Pain, Moderate (4-6) Review of Systems Constitutional: no fever, no chills Ears, nose, mouth and throat: no nasal congestion, no sore throat Cardiovascular: chest pain, lightheadedness, shortness of breath, no palpitations, no edema, no syncope, no dyspnea on exertion Respiratory: shortness of breath, no cough Gastrointestinal: no abdominal pain, no nausea, no vomiting Genitourinary Male: no dysuria, no flank pain Musculoskeletal: no neck stiffness, no neck pain Integumentary: no rash, no wounds Neurological: no head injury, no paralysis, no weakness, no numbness, no tingling, no seizures, no syncope, no vertigo, no headaches Endocrine: no cold intolerance, no heat intolerance Hematologic/Lymphatic: no easy bruising, no easy bleeding Allergic/Immunologic: no anaphylaxis Physical Examination Last Vital Signs Temp 97.5 F L 10/03/20 07:44 Pulse 75 10/03/20 09:56 Resp 19 10/03/20 07:44 BP 132/75 10/03/20 09:56 Pulse Ox 98 10/03/20 07:44 General appearance: no acute distress HEENT: Positive: EOMI, Normocephaly Neck: Positive: neck supple, trachea midline. Negative: JVD/HJR Cardiac: Positive: Reg Rate and Rhythm, S1/S2 Lungs: Positive: clear to auscultation Neuro: Positive: Grossly Intact Abdomen: Positive: Soft. Negative: Tender Skin: Negative: Rash Musculoskeletal: Normal Range of Motion Extremities: Present: upper extr. pulses, lower extr. pulses. Absent: edema Results 10/02/20 16:28 10/03/20 03:08 Cardiac Enzymes 10/02/20 10/03/20 Range/Units 16:28 03:08 AST 14 10 (5-40) units/L Coagulation 10/02/20 Range/Units 17:03 PT 14.1 (12.2-14.9) Sec. INR 1.03 (0.87-1.13) CBC 10/02/20 Range/Units 16:28 WBC 6.5 (4.5-11.0) K/mm3 RBC 4.41 (3.65-5.03) M/mm3 Hgb 13.0 (11.8-15.2) gm/dl Hct 39.2 (35.5-45.6) % Plt Count 340 (140-440) K/mm3 Lymph # (Auto) 2.6 (1.2-5.4) K/mm3 [place] # (Auto) 0.7 (0.0-0.8) K/mm3 Eos # (Auto) 0.3 (0.0-0.4) K/mm3 Baso # (Auto) 0.0 (0.0-0.1) K/mm3 Comprehensive Metabolic Panel 10/02/20 10/03/20 Range/Units 16:28 03:08 Sodium 139 136 L (137-145) mmol/L Potassium 4.4 4.2 (3.6-5.0) mmol/L Chloride 100.9 101.7 (98-107) mmol/L Carbon Dioxide 27 25 (22-30) mmol/L BUN 11 14 (9-20) mg/dL Creatinine 1.1 1.1 (0.8-1.3) mg/dL Glucose 130 H 220 H (75-100) mg/dL Calcium 9.9 8.7 (8.4-10.2) mg/dL AST 14 10 (5-40) units/L ALT 14 12 (7-56) units/L Alkaline Phosphatase 49 48 (35-129) units/L Total Protein 7.4 6.5 (6.3-8.2) g/dL Albumin 3.9 3.3 L (3.9-5) g/dL - Imaging and Cardiology Echo: report reviewed (09/12/2020 - EF 60-65%, indeterminate diastolic fxn, RA mod dilated, RVSP 54mmHg) EKG: report reviewed, image reviewed - EKG Interpretation EKG: no acute changes EKG interpretations - Telemetry EKG Rhythm: Atrial Flutter - EKG Supraventricular dysrhythmia: atrial flutter Assessment and Plan Plan for Lexiscan stress MPI this AM. Continue home cardiac regimen. F/u BMP & Mg. Pt seen in conjunction with Dr. Foreman, who agrees with the assessment and plan of care. - Patient Problems (1) Chest pain Current Visit: Yes Status: Acute (2) Atrial flutter Current Visit: Yes Status: Chronic (3) Hypomagnesemia Current Visit: Yes Status: Acute (4) Chronic heart failure with preserved ejection fraction (HFpEF) Current Visit: Yes Status: Chronic (5) Hypertension Current Visit: Yes Status: Chronic Qualifiers: Hypertension type: primary hypertension Qualified Code(s): I10 - Essential (primary) hypertension (6) DM2 (diabetes mellitus, type 2) Current Visit: Yes Status: Chronic (7) ANN-MARIE (obstructive sleep apnea) Current Visit: Yes Status: Chronic (8) Pulmonary hypertension Current Visit: Yes Status: Chronic (9) Tobacco abuse Current Visit: No Status: Chronic (10) ETOH abuse Current Visit: No Status: Chronic (11) Cocaine abuse Current Visit: No Status: Chronic
--- NOTE | 2020-10-03 08:41 | Progress Note ---
Assessment and Plan Assessment and plan: Chest pain. Chronic diastolic heart failure. Compensated. Echocardiogram from 09/2020 reveals left ventricular size and systolic function normal. EF is 60 to 65%. Borderline concentric left ventricular hypertrophy. Chest x-ray is negative and BNP normal Atrial fibrillation Diabetes mellitus type 2 Hypertension Pulmonary hypertension GERD Hyperlipidemia 10/03/2020. Patient does not show any signs of heart failure given negative chest x-ray and normal BNP. Await cardiology consultation and decision regarding ischemic evaluation for chest pain. Continue chest pain protocol and monitor serial EKGs and troponins. Resume home medications of Eliquis for anticoagulation with atrial fibrillation. Continue Lipitor and beta-ignacia. Continue Lasix daily. Resume Amaryl and Metformin. Accu-Cheks and sliding scale insulin History Interval history: No new issues overnight Hospitalist Physical - Constitutional Vitals: Temp Pulse Resp BP Pulse Ox 97.5 F L 66 19 137/75 98 10/03/20 07:44 10/03/20 07:44 10/03/20 07:44 10/03/20 07:44 10/03/20 07:44 General appearance: Present: mild distress - EENT Eyes: Present: PERRL, EOM intact ENT: hearing intact, clear oral mucosa, dentition normal - Neck Neck: Present: supple, normal ROM - Respiratory Respiratory effort: normal Respiratory: bilateral: CTA - Cardiovascular Rhythm: regular Heart Sounds: Present: S1 & S2. Absent: gallop, rub - Extremities Extremities: no ischemia, No edema, Full ROM - Abdominal General gastrointestinal: soft, non-tender, non-distended, normal bowel sounds - Integumentary Integumentary: Present: clear, warm, dry - Neurologic Neurologic: CNII-XII intact, moves all extremities HEART Score - HEART Score EKG: Non-specific Age: > 65 Risk factors: > 3 risk factors or hx of atherosclerotic disease Troponin: Troponin T < 0.010 ng/mL (0.00-0.029) 10/02/20 22:48 Troponin: < normal limit - Critical Actions Critical Actions: 4-6 pts:12-16.6% risk of adverse cardiac event. Should be admitted Results - Labs CBC & Chem 7: 10/02/20 16:28 10/03/20 03:08 Labs: Laboratory Last Values WBC 6.5 K/mm3 (4.5-11.0) 10/02/20 16:28 RBC 4.41 M/mm3 (3.65-5.03) 10/02/20 16:28 Hgb 13.0 gm/dl (11.8-15.2) 10/02/20 16: Hct 39.2 % (35.5-45.6) 10/02/20 16: MCV 89 fl (84-94) 10/02/20 16: MCH 30 pg (28-32) 10/02/20 16: MCHC 33 % (32-34) 10/02/20 16:28 RDW 13.5 % (13.2-15.2) 10/02/20 16: Plt Count 340 K/mm3 (140-440) 10/02/20 16: Lymph % (Auto) 39.4 % (13.4-35.0) H 10/02/20 16: [place] % (Auto) 11.5 % (0.0-7.3) H 10/02/20 16: Eos % (Auto) 4.8 % (0.0-4.3) H 10/02/20 16:28 Baso % (Auto) 0.5 % (0.0-1.8) 10/02/20 16: Lymph # (Auto) 2.6 K/mm3 (1.2-5.4) 10/02/20 16: [place] # (Auto) 0.7 K/mm3 (0.0-0.8) 10/02/20 16: Eos # (Auto) 0.3 K/mm3 (0.0-0.4) 10/02/20 16: Baso # (Auto) 0.0 K/mm3 (0.0-0.1) 10/02/20 16: Seg Neutrophils % 43.8 % (40.0-70.0) 10/02/20 16: Seg Neutrophils # 2.8 K/mm3 (1.8-7.7) 10/02/20 16: PT 14.1 Sec. (12.2-14.9) 10/02/20 17:03 INR 1.03 (0.87-1.13) 10/02/20 17:03 D-Dimer < 135.00 ng/mlDDU (0-234) 10/02/20 17:03 Sodium 136 mmol/L (137-145) L 10/03/20 03:08 Potassium 4.2 mmol/L (3.6-5.0) 10/03/20 03:08 Chloride 101.7 mmol/L (98-107) 10/03/20 03:08 Carbon Dioxide 25 mmol/L (22-30) 10/03/20 03:08 Anion Gap 14 mmol/L 10/03/20 03:08 BUN 14 mg/dL (9-20) 10/03/20 03:08 Creatinine 1.1 mg/dL (0.8-1.3) 10/03/20 03:08 Estimated GFR > 60 ml/min 10/03/20 03:08 BUN/Creatinine Ratio 13 % 10/03/20 03:08 Glucose 220 mg/dL (75-100) H 10/03/20 03:08 Calcium 8.7 mg/dL (8.4-10.2) 10/03/20 03:08 Magnesium 1.20 mg/dL (1.7-2.3) L 10/02/20 17:03 Total Bilirubin < 0.20 mg/dL (0.1-1.2) 10/03/20 03:08 AST 10 units/L (5-40) 10/03/20 03:08 ALT 12 units/L (7-56) 10/03/20 03:08 Alkaline Phosphatase 48 units/L (35-129) 10/03/20 03:08 Total Creatine Kinase 67 units/L (55-170) 10/02/20 17:03 Troponin T < 0.010 ng/mL (0.00-0.029) 10/02/20 22:48 NT-Pro-B Natriuret Pep 250.1 pg/mL (0-900) 10/02/20 17:03 Total Protein 6.5 g/dL (6.3-8.2) 10/03/20 03:08 Albumin 3.3 g/dL (3.9-5) L 10/03/20 03:08 Albumin/Globulin Ratio 1.0 % 10/03/20 03:08 Armando/IV: Voiding Method Toilet Active Medications - Current Medications Current Medications: Generic Name Dose Route Start Last Admin Trade Name Freq PRN Reason Stop Dose Admin Acetaminophen 650 mg 10/02/20 17:07 Acetaminophen 325 Mg Tab PO Q4H PRN Pain MILD(1-3)/Fever >100.5/MURRAY Albuterol 2.5 mg 10/02/20 17:07 Albuterol 2.5 Mg/3 Ml Nebu IH Q4HRT PRN Shortness Of Breath Hydromorphone HCl 0.5 mg 10/02/20 17:07 Hydromorphone 1 Mg/1 Ml Inj IV Q12H PRN Pain , Severe (7-10) Nitroglycerin 0.4 mg 10/02/20 17:07 Nitroglycerin 0.4 Mg Tab Subl SL Q5M PRN Chest Pain Ondansetron HCl 4 mg 10/02/20 17:07 Ondansetron 4 Mg/2 Ml Inj IV Q8H PRN Nausea And Vomiting Oxycodone/Acetaminophen 1 tab 10/02/20 17:07 Oxycodone /Acetaminophen 5-325mg Tab PO Q6H PRN Pain, Moderate (4-6) Sodium Chloride 10 ml 10/02/20 22:00 10/02/20 22:00 Sodium Chloride 0.9% 10 Ml Flush Syringe IV 10 ml BID BRONSON Administration Sodium Chloride 10 ml 10/02/20 17:07 Sodium Chloride 0.9% 10 Ml Flush Syringe IV PRN PRN LINE FLUSH Tramadol HCl 50 mg 10/02/20 17:07 Tramadol 50 Mg Tab PO Q6H PRN Pain, Moderate (4-6)
[2020-10-03] MEDS: PIOGLITAZONE 15 MG TAB PO SCH (09:44)
[2020-10-03] MEDS: GLIMEPIRIDE 4 MG TAB PO SCH (09:45)
[2020-10-03] MEDS: metFORMIN 500 MG TAB PO SCH ×2 (09:45→16:20)
[2020-10-03] MEDS: PANTOPRAZOLE 40 MG TAB PO SCH (09:55)
[2020-10-03] MEDS: GABAPENTIN 300 MG CAP PO SCH ×2 (09:56→23:35)
[2020-10-03] MEDS: OMEGA-3 FATTY ACIDS/FISH OIL 1 GRAM CAP PO SCH (09:56)
[2020-10-03] MEDS: carvediloL 6.25 MG TAB PO SCH ×2 (09:56→23:35)
[2020-10-03] MEDS: TAMSULOSIN 0.4 MG CAP PO SCH (09:56)
[2020-10-03] MEDS: FUROSEMIDE 40 MG TAB PO SCH (09:56)
[2020-10-03] MEDS: APIXABAN 5 MG TAB PO SCH ×2 (09:56→23:35)
[2020-10-03] MEDS ORDERED: NON-FORMULARY EACH (Apixaban 5 MG Tablet) PO SCH (10:00)
[2020-10-03] MEDS ORDERED: NON-FORMULARY EACH (Metformin Hcl [Metformin] 1,000 MG Tablet) PO SCH (10:00)
[2020-10-03] MEDS ORDERED: PIOGLITAZONE HCL 45 MG PO SCH (10:00)
[2020-10-03] MEDS ORDERED: NON-FORMULARY EACH (Omega-3/Dha/Epa/Fish Oil [Omega 3 500 Softgel] 1 EACH Capsule) PO SCH (10:00)
--- NOTE | 2020-10-03 10:40 | Electrocardiograph Report ---
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 Electronically Signed On 10-03-2020 10:40:22 EDT by Sacha Foreman
[2020-10-03] MEDS ORDERED: REGADENOSON 0.4 MG/5 ML INJ IV ONE (11:00)
[2020-10-03] MEDS: INSULIN REGULAR, HUMAN 100 UNITS/1 ML SUB-Q SCH ×3 (11:20→23:35)
--- NOTE | 2020-10-03 11:53 | Electrocardiograph Report ---
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
--- NOTE | 2020-10-03 12:20 | Nuclear Medicine Report ---
APPROVED REPORT Exam: Nuclear Stress Test Indication: Chest pain Patient Location: [address] [place] [address] Room #: 485 Ht: 5 ft 11 in Wt: 206 lbs BSA: 2.13 m2 HR: 67 bpmBP: 134/72 mmHgBMI: 28.72 Rhythm: SINUS RHYTHM Stress Test Details Stress Test: Pharmacologic stress testing performed using 0.4 mg of regadenoson per 5 mL given IV over 10 seconds. HR Resting HR: 67 bpm Max HR Achieved: 91 bpm Max Heart Rate (APMHR): 146 bpm Target HR (85% APMHR): 124 bpm % of APMHR: 62 Recovery HR: 65 bpm HR response to stress: Normal HR response to stress BP Resting BP: 134/72 mmHg Max BP: 147/77 mmHg Recovery BP: 125/66 mmHg BP response to stress: Normal blood pressure response to stress. ECG Resting ECG: Atrial flutter with controlled ventricular rate.with associated ST-T changes noted. Stress ECG: Atrial flutter withcontrolled ventricular rate and associated ST changes related to flutter waves noted. ST Change: None Arrhythmia: None Recovery ECG: atrial flutter Recovery ST Change: No change from baseline. Clinical Reason for Termination: Completed protocol Stress Symptoms: None NM EXAM: Myocardial Perfusion REST/STRESS Imaging Protocol: Rest Tc-99m/Stress Tc-99m 1 day Resting Data Rest SPECT myocardial perfusion imaging was performed in supine position 45 minutes following the intravenous injection of 10 mCi of Tc-99m Myoview. Time of rest injection: 0930 Pharmacologic Stress Pharmacologic stress test was performed by injecting Regadenoson 0.4 mg IV push followed by the intravenous injection of 28 mCi of Tc-99m Myoview. Time of stress injection: 1120 Stress only was performed in the Supine position. Study Data TID = 0.91. Perfusion Wall Motion Gating was not performed because of underlying atrial flutter. Nuclear Conclusion ECG Findings: non-diagnostic Clinical Findings: negative for ischemia Nuclear Findings: negative for ischemia Exercise Capacity: not assessed Left Ventricular Function: not assesed. Risk Study: low There is a small area of mildly reduced uptake in the apical segment of the anteroseptal wall which is seen on the stress images as well as the resting images.
--- NOTE | 2020-10-03 12:25 | Event Note ---
Date: 10/03/20 [facility] Lexiscan stress MPI this AM revealed no evidence of ischemia. Cardiac status is currently stable. No objection to discharge from a Cardiology standpoint. Follow-up with Dr. Cardenas on 10/10/2020 @ 11:15am ([phone]). MIKALA AVILA MD / VIANCA SANCHEZ NP
[2020-10-04 05:06] VITALS: BP 139/65
[2020-10-04] MEDS: INSULIN REGULAR, HUMAN 100 UNITS/1 ML SUB-Q SCH (08:40)
--- NOTE | 2020-10-04 09:41 | Discharge Summary ---
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 He was seen and evaluated in Emergency Department. Troponins were negative. Cardiology was consulted and he was evaluated by [facility]. Stress test was done and was negative for ischemia. Patient therefore discharged home to follow with cardiology as outpatient. Disposition: TO HOME OR SELFCARE Final Discharge Diagnosis (Prints w/discharge instructions): 1.Chest pain due to GERD. 2.GERD - Discharge Diagnoses (1) GERD (gastroesophageal reflux disease) Status: Acute (2) Acute chest pain Status: Acute Comment: Due to GERD (3) Chronic diastolic (congestive) heart failure Status: Acute (4) DM2 (diabetes mellitus, type 2) Status: Chronic (5) ANN-MARIE (obstructive sleep apnea) Status: Chronic (6) Pulmonary hypertension Status: Chronic Core Measure Documentation - Palliative Care Palliative Care/ Comfort Measures: Not Applicable - Core Measures Any of the following diagnoses?: none Exam - Constitutional Vitals: Temp Pulse Resp BP Pulse Ox 97.9 F 66 16 139/65 98 10/04/20 04:04 10/04/20 08:42 10/04/20 04:04 10/04/20 04:04 10/04/20 09:33 Plan Activity: advance as tolerated Diet: low fat, low cholesterol, low salt, diabetic Special Instructions: other (1.Follow up with PCP at [facility] in 1 week. 2.Follow up with Dr. Cardenas on 10/10/20) Plan of Treatment: 1.Follow up with PCP in 1 week. 2.Follow up with Dr. Cardenas, Cardiology on 10/10/20 Follow up with: PRIMARY CARE, [Primary Care Provider] - 3-5 Days Prescriptions: Famotidine [Pepcid] 20 mg PO BID #60 tablet
[2020-10-04] MEDS: GLIMEPIRIDE 4 MG TAB PO SCH (10:20)
[2020-10-04] MEDS: PIOGLITAZONE 15 MG TAB PO SCH (10:20)
[2020-10-04] MEDS: APIXABAN 5 MG TAB PO SCH (10:20)
[2020-10-04] MEDS: carvediloL 6.25 MG TAB PO SCH (10:20)
[2020-10-04] MEDS: FUROSEMIDE 40 MG TAB PO SCH (10:20)
[2020-10-04] MEDS: TAMSULOSIN 0.4 MG CAP PO SCH (10:20)
[2020-10-04] MEDS: GABAPENTIN 300 MG CAP PO SCH (10:20)
[2020-10-04] MEDS: PANTOPRAZOLE 40 MG TAB PO SCH (10:20)
[2020-10-04] MEDS: OMEGA-3 FATTY ACIDS/FISH OIL 1 GRAM CAP PO SCH (10:20)
--- NOTE | 2020-10-04 10:28 | Progress Note ---
Assessment and Plan Lexiscan stress MPI yesterday AM revealed a small fixed apical defect, no significant stress-induced ischemia. Cardiac status is stable. No objection to discharge from a Cardiology standpoint. Follow-up with Dr. Cardenas on 10/10/2020 @ 11:15am ([phone]). Pt seen in conjunction with Dr. Foreman, who agrees with the assessment and plan of care. - Patient Problems (1) Chest pain Current Visit: Yes Status: Acute (2) Atrial flutter Current Visit: Yes Status: Chronic (3) Hypomagnesemia Current Visit: Yes Status: Acute (4) Chronic heart failure with preserved ejection fraction (HFpEF) Current Visit: Yes Status: Chronic (5) Hypertension Current Visit: Yes Status: Chronic Qualifiers: Hypertension type: primary hypertension Qualified Code(s): I10 - Essential (primary) hypertension (6) DM2 (diabetes mellitus, type 2) Current Visit: Yes Status: Chronic (7) ANN-MARIE (obstructive sleep apnea) Current Visit: Yes Status: Chronic (8) Pulmonary hypertension Current Visit: Yes Status: Chronic (9) Tobacco abuse Current Visit: No Status: Chronic (10) ETOH abuse Current Visit: No Status: Chronic (11) Cocaine abuse Current Visit: No Status: Chronic Subjective Date of service: 10/04/20 Principal diagnosis: Chest Pain Interval history: C/o chest wall tenderness, worse with certain positions. No further pleuritic chest pain. No additional cardiac complaints. Tele reviewed - 3:1 AFlutter 60- 70s, no events overnight. Objective Last Vital Signs Temp 97.9 F 10/04/20 04:04 Pulse 66 10/04/20 08:42 Resp 16 10/04/20 04:04 BP 139/65 10/04/20 04:04 Pulse Ox 98 10/04/20 09:33 - Physical Examination General: No Apparent Distress HEENT: Positive: EOMI, Normocephaly Neck: Positive: neck supple, trachea midline. Negative: JVD/HJR Cardiac: Positive: Irregularly Regular, S1/S2 Lungs: Positive: Decreased Breath Sounds (bilaterally) Neuro: Positive: Grossly Intact Abdomen: Positive: Soft. Negative: Tender Skin: Negative: Rash Musculoskeletal: Normal Range of Motion Extremities: Present: upper extr. pulses, lower extr. pulses. Absent: edema - Imaging and Cardiology EKG: report reviewed, image reviewed Pharmacologic stress test: report reviewed (10/03/2020 - small fixed apical defect, no significant stress-induced ischemia) Echo: report reviewed (09/12/2020 - EF 60-65%, indeterminate diastolic fxn, RA mod dilated, RVSP 54mmHg) - Telemetry EKG Rhythm: Atrial Flutter - EKG Supraventricular dysrhythmia: atrial flutter
== END 2020-10-04 13:50 | disposition home or self-care (01) ==
LOC: ED 16:06 → 4A 17:07
PROVIDERS: ADMIT Internal Medicine; ATTEND Internal Medicine
DX: I20.8 Other forms of angina pectoris (principal); I11.0 Hypertensive heart disease with heart failure; I50.9 Heart failure, unspecified; I48.91 Unspecified atrial fibrillation; I48.92 Unspecified atrial flutter; E11.9 Type 2 diabetes mellitus without complications; K21.9 Gastro-esophageal reflux disease without esophagitis; E78.5 Hyperlipidemia, unspecified; G89.29 Other chronic pain; M54.9 Dorsalgia, unspecified; E83.42 Hypomagnesemia; G47.30 Sleep apnea, unspecified; F17.210 Nicotine dependence, cigarettes, uncomplicated; Z79.84 Long term (current) use of oral hypoglycemic drugs; Z79.899 Other long term (current) drug therapy; Z98.890 Other specified postprocedural states; Z91.14 Patient's other noncompliance with medication regimen
CPT/HCPCS: 36415; 71046; 78452; 80053; 82550; 82962; 83735; 83880; 84484; 85025; 85379; 85610; 93005; 93017; 96365; 96375; 99285; A9270; A9502; G0378; J2270; J2785; J3475